=== PATIENT | male | born 1955 | race Caucasian/White ===

== ENCOUNTER → 2017-02-25 | Outpatient (CLI) | payer OTHER ==
[~2017-02-25] MED LIST: AMLO10TA2 PO; ASCO500T2 PO; ASPI-482 PO; ATOR40TA PO; CELE200C PO; CHOL200027 PO; FISH1CAP PO; HYDR-2868 PO; LISI40TA PO; METH250T PO; METO50TA2 PO
--- NOTE | 2017-02-25 12:08 | CARD ---
APPROVED REPORT EXAM: Two-dimensional and M-mode echocardiogram with Doppler and color Doppler. Other Information Quality : FairHR: 60bpm Rhythm : NSR INDICATION Dyspnea 2D DIMENSIONS RVDd3.5 (2.9-3.5cm)Left Atrium(2D)3.8 (1.6-4.0cm) IVSd0.9 (0.7-1.1cm)Aortic Root(2D)2.8 (2.0-3.7cm) LVDd4.6 (3.9-5.9cm)LVOT Diameter2.1 (1.8-2.4cm) PWd0.9 (0.7-1.1cm)LVDs3.1 (2.5-4.0cm) FS (%) 31.8 %SV58.4 ml LVEF(%)60.0 (>50%) Aortic Valve AoV Peak Edgar.127.1cm/sAoV VTI29.2cm AO Peak GR.6.5mmHgLVOT Peak Edgar.106.6cm/s LVOT VTI 25.30cmAO Mean GR.4mmHg AMANDA (VMAX)3.92cp1YTR (VTI)3.11cm2 Mitral Valve MV E Hftaorrn19.1cm/sMV DECEL TMUA263an MV A Rjkqzcwb75.4cm/sMV E Mean Gr.3mmHg MV OWE04udR/A Ratio0.9 MV A Sfbmjjgn829lmIDV (PHT)3.74cm2 TDI E/Lateral E'14.5E/Medial E'15.5 Pulmonary Valve PV Peak Eiwhicba84.2cm/sPV Peak Grad.3mmHg RVOT VTI17.9cm Tricuspid Valve TR P. Uhwdlmad212xv/sRAP JRPBSXVV5naBr TR Peak Gr.76yiVmVXQA42trDg LEFT VENTRICLE The left ventricle is normal size. There is normal left ventricular wall thickness. Left ventricle sy stolic function is normal. The Ejection Fraction is 60-65%. There is normal LV segmental wall motion. Transmitral Doppler flow pattern is Grade I-abnormal relaxation pattern. There is no ventricular sep leonila defect visualized. RIGHT VENTRICLE The right ventricle is normal size. The right ventricular systolic function is normal. ATRIA The left atrium size is normal. The right atrium size is normal. The interatrial septum is intact wit h no evidence for an atrial septal defect or patent foramen ovale as noted on 2-D or Doppler imaging. AORTIC VALVE The aortic valve is mildly sclerotic. The aortic valve is trileaflet. Doppler and Color Flow revealed no significant aortic regurgitation. There is no significant aortic valvular stenosis. MITRAL VALVE There is no evidence of mitral valve prolapse. There is no mitral valve stenosis. Doppler and Color F low revealed trace mitral regurgitation. TRICUSPID VALVE The tricuspid valve is normal in structure and function. Doppler and Color Flow revealed trace tricus pid regurgitation. There is no pulmonary hypertension. The PA pressure was estimated at 26 mmHg. Ther e is no tricuspid valve stenosis. PULMONIC VALVE Doppler and Color Flow revealed no pulmonic valvular regurgitation. There is no pulmonic valvular yandel nosis. GREAT VESSELS The aortic root is normal in size. The ascending aorta is normal in size. Pulmonary Vein is not well visualized. The IVC is normal in size and collapses >50% with inspiration. PERICARDIAL EFFUSION There is no pleural effusion. There is no evidence of significant pericardial effusion. Critical Notification Critical Value: No <Conclusion> Left ventricle systolic function is normal. The Ejection Fraction is 60-65%. There is normal LV segmental wall motion.
== END | disposition home or self-care (01) ==
LOC: ECHO 07:50
PROVIDERS: ATTEND Internal Medicine Cardiovascular Disease
DX: R06.02 Shortness of breath (principal); I08.1 Rheumatic disorders of both mitral and tricuspid valves
CPT/HCPCS: 93306

== ENCOUNTER → 2017-03-25 | Outpatient (CLI) | payer OTHER ==
--- NOTE | 2017-03-25 11:36 | RAD ---
Indication chronic shortness of breath. PA and lateral views of the chest were obtained and are compared to an examination 01/06/2017. The heart and pulmonary vessels are within normal limits. There is no focal infiltrate. There is no pleural fluid or pneumothorax. A significant change compared to the previous exam is not seen. IMPRESSION: No acute or focal process. No significant change
== END | disposition home or self-care (01) ==
LOC: RAD 10:50
PROVIDERS: ATTEND Internal Medicine Cardiovascular Disease
DX: R06.00 Dyspnea, unspecified (principal)
CPT/HCPCS: 71020

== ENCOUNTER → 2017-04-01 | Outpatient (CLI) | payer OTHER ==
--- NOTE | 2017-04-01 17:46 | RESP ---
DATE OF SERVICE: 04/01/2017 ATTENDING PHYSICIAN: Dr. Beckford. The patient's FVC was 3.57 which is 83% of predicted. FEV1 was 2.57 which is 79% of predicted. The FEV1/FVC ratio was normal. FEF 25-75 was 60% of predicted. No response to bronchodilators seen. Lung volumes could not be performed. Diffusion capacity was 128% of predicted. IMPRESSION: 1. Spirometry findings suggestive of small airway dysfunction. 2. No response to bronchodilators. 3. Increased diffusion capacity. BINTA CASANOVA MD DR: JANIYA/shine JOB#: [id number] / [id number] PIPPA Granado MD MTDD
== END | disposition home or self-care (01) ==
LOC: PF 07:58
PROVIDERS: ATTEND Internal Medicine Cardiovascular Disease
DX: R06.00 Dyspnea, unspecified (principal)
CPT/HCPCS: 94060; 94729

== ENCOUNTER → 2018-06-20 | Outpatient (CLI) | payer OTHER | END | disposition home or self-care (01) | LOC: KCIC MRI 07:43 | DX: M51.26 Other intervertebral disc displacement, lumbar region (principal); M48.061 Spinal stenosis, lumbar region without neurogenic claudication; M51.36 Other intervertebral disc degeneration, lumbar region; M12.88 Other specific arthropathies, not elsewhere classified, other specified site; R20.0 Anesthesia of skin; I10 Essential (primary) hypertension | CPT/HCPCS: 72148 ==

== ENCOUNTER → 2018-08-07 | Outpatient (CLI) | payer OTHER ==
[~2018-08-07] MED LIST changes: -AMLO10TA2 PO; +AMLO10TA6 PO; +BUPIVACAINE MPF 0.5% 30 ML VIAL. ONE; +LISI-130 PO; -LISI40TA PO; -METH250T PO; +METH250T3 PO; -METO50TA2 PO; +METO50TA6 PO; +methylPREDNISolone ACETATE 40 MG/ML VIAL. ONE
--- NOTE | 2018-08-07 13:04 | PAIN ---
DATE OF SERVICE: 08/07/2018 PROGRESS NOTE FOR PAIN CLINIC DIAGNOSES: 1. Lumbar radiculopathy with lumbar degenerative disk disease. 2. Left meralgia paraesthetica. HISTORY OF PRESENT ILLNESS: The patient is a 63-year-old male who returns for followup, last seen in 2015 in June. The patient underwent a lumbar epidural steroid injection and did very well for almost a year. Pain in his low back is returning now but his main complaint is left lateral thigh numbness and tingling. The patient seen his neurosurgeon who sent him on for treatment without any surgical indications at this time. The patient did have an MRI scan of his lumbar spine, which shows essentially similar to that in 2016 with a circumferential disk bulge at L5-S1 with severe bilateral neural foraminal stenosis and a disk protrusion centrally extending to the right foraminal zone. The patient reports it is worse with walking, standing, change in positions, mostly noticed with standing or sitting for a prolonged period with the lateral tingling on the anterior thigh and lateral thigh to the knee. The patient reports he feels weaker and he feels better when he is off of his feet or lying down, does not bother, does not awaken him from sleep at night. The patient rates the pain is from 0-10, 10 being the worst, as a 7 at its worst, 0 at its least and a 4 on average and is a 4 today. The patient reports disability rate from 0-10, 10 being the worst, is a 2 with family home responsibilities, 8 with recreation, social activity and occupation, 0 with sexual behavior, self care and life support activities. The patient has not tried any other current therapies but is interested in some physical therapy as he is looking into some weight loss strategies as well. MEDICATIONS: The patient's medication list includes Lipitor, hydralazine, amlodipine, vitamin D3, fish oil, daily baby aspirin, methyldopa, metoprolol and lisinopril. ALLERGIES: The patient has no known drug allergies. SOCIAL HISTORY: The patient drinks about 3 beers a month. Does not smoke, does not use any illegal, illicit or recreational drugs. He is and lives locally in [place], [place] and is currently retired. PHYSICAL EXAMINATION: VITAL SIGNS: Today, the patient's blood pressure is 134/71, pulse 77, respirations are 18 and temperature is 98.0 degrees Fahrenheit. GENERAL: The patient is awake, alert, oriented, appropriate and very pleasant demeanor. HEENT: Head shows normocephalic and atraumatic. Extraocular movements intact and symmetrical. Oral cavity: Mucous membranes are moist and pink. Dentition is intact. NECK: Shows anterior throat supple without palpable lymphadenopathy noted. Swallow reflex is symmetrical. CHEST: Shows normal on inspection. Breath sounds clear to auscultation bilaterally. HEART: Shows S1 and S2 clear. No murmurs auscultated. ABDOMEN: Soft, nontender and nondistended. Obese but without organomegaly. No rebound or guarding demonstrated. BACK: Shows spine grossly in the midline. Normal appearing thoracic kyphosis and slight flattening of lumbar lordotic curvature. Lumbar paraspinous muscle shows symmetrical on inspection and palpation shows some moderate tenderness bilaterally but only diffusely in the lower lumbar distribution. No tenderness over the sacroiliac region or sacrum. The patient has good rotational motion both laterally greater than 10 degrees, right and left as well as extension greater than 10 degrees, forward flexion 45 degrees, lumbar spine without difficulty or pain reported. EXTREMITIES: Lower extremities show deep tendon reflexes 2+ at the patella, 1+ tendo-calcaneus tendon. Motor exam is strong with 5/5 dorsiflexion and extension. Peripheral pulses are 1+. No peripheral edema is noted. The patient's left anterior thigh shows good discrimination between sharp and dull throughout the lateral and anterior thigh but the patient is not having any symptoms with sitting down and with standing, the patient is able to stand, stand on his toes without difficulty or loss of balance, walks with a normal appearing gait, not using any assistive devises to ambulate. The patient reports some mild numbness feeling in the left lateral and anterior thigh with standing even after a few minutes but is not significantly painful in just a few minutes. Options were discussed with the patient. The patient's old chart was reviewed as well as his current medication regimen updated. Current review of systems updated today as well and we will proceed with a left lateral femoral cutaneous nerve block. Risks were discussed including, but not limited to bleeding, infection, possibility of intravascular injection sequelae, extravasation of local anesthetic and numbness as well as side effects of steroid medication and poor results regarding pain control. The patient understands and wished to proceed. The patient will return to the clinic in approximately 2 weeks. We discussed potential lumbar epidural steroid injection if feeling much better with the left leg and his back pain is still significant. We will discuss this more on his return visit. DIAGNOSIS: Left meralgia paraesthetica. PROCEDURE: Left lateral femoral cutaneous nerve block under sterile prep and drape using local anesthetic. MEDICATION INJECTED: A total of 5 mL of 0.5% bupivacaine plus 40 mg Depo-Medrol after negative aspiration. CONDITION AT DISCHARGE: Stable. The patient tolerated the procedure well and had no complications. ZACH HERRERA MD DR: ALICE/shine JOB#: [id number] / [id number]
== END | disposition home or self-care (01) ==
LOC: PNCL 08:44
PROVIDERS: ATTEND Anesthesiology
DX: G57.12 Meralgia paresthetica, left lower limb (principal); M51.16 Intervertebral disc disorders with radiculopathy, lumbar region; Z79.82 Long term (current) use of aspirin; Z79.899 Other long term (current) drug therapy; Z72.89 Other problems related to lifestyle; Z91.030 Bee allergy status
CPT/HCPCS: 64450; J1030; J3490

== ENCOUNTER → 2018-08-21 | Outpatient (CLI) | payer OTHER ==
[~2018-08-21] MED LIST changes: +BUPIVACAINE MPF 0.25% 10 ML VIAL. ONE; -BUPIVACAINE MPF 0.5% 30 ML VIAL. ONE; +IOHEXOL 180 MG/ML 10 ML VIAL. ONE
--- NOTE | 2018-08-21 20:21 | PAIN ---
DATE OF SERVICE: 08/21/2018 DIAGNOSES: 1. Lumbar radiculopathy with lumbar degenerative disk disease. 2. Left meralgia paraesthetica. HISTORY OF PRESENT ILLNESS: The patient is a 63-year-old male who returns for followup status post left femoral cutaneous nerve block x 1 about 2 weeks ago. The patient reports he did better for about a week and the pain began to return. It is now on and off in the lateral anterior thigh, worse with walking, standing, but comes and goes, is not consistent with any one position at this time. The patient reports still pain across the low back, into the left leg as well. The patient rates his pain as 7 on a scale of 10 at its worst, 5 on average, 4 at its least and is a 4 today. The patient reports it is aching, dull, tight, tingling, burning, becoming more constant in the back and into the left leg. The patient reports no new motor or sensory deficits, no new bowel or bladder incontinence, but he has not been on his feet as much, which he feels that this may help the pain as well in the leg as noted in the back. The patient reports no new motor or sensory deficits, no new changes. PHYSICAL EXAMINATION: VITAL SIGNS: The patient's blood pressure 112/71, pulse 57, respirations 16, temperature is 98.5 degrees Fahrenheit, weight is 246 pounds. GENERAL: The patient is awake, alert, oriented, appropriate, very pleasant demeanor. HEENT: Head shows normocephalic, atraumatic. Extraocular movements intact and symmetrical. Oral cavity: Mucous membranes moist and pink. Dentition is intact. NECK: Shows anterior throat supple without palpable lymphadenopathy noted. Swallow reflex is symmetrical. CHEST: Shows normal with inspection. Breath sounds clear to auscultation bilaterally. HEART: Shows S1, S2 clear. No murmurs auscultated. ABDOMEN: Obese, soft, nontender, nondistended. No palpable organomegaly is noted. No rebound or guarding demonstrated. BACK: Shows spine grossly in the midline. Normal appearing thoracic kyphosis and lumbar lordotic curvature. Lumbar paraspinous musculature shows symmetrical on inspection and palpation shows some mild tenderness, but only diffusely in the low lumbar distribution without radiation. EXTREMITIES: Lower extremities show deep tendon reflexes 2+ in the patellar, 1+ tendo-calcaneus tendons. Motor exam is strong with 5/5 dorsiflexion, extension, quadriceps and hamstring flexion. Options were discussed with the patient. The patient's old chart was reviewed as his current medication regimen and updated. Current review of systems is updated today as well and we will proceed with a repeat left lateral femoral cutaneous nerve block with fluoroscopic guidance. Risks were again discussed including, but not limited to bleeding, infection, possibility of intravascular injection sequelae, spread of local anesthetic and numbness, side effects of steroid medication and poor results regarding pain control. The patient understands and wished to proceed. The patient will return to clinic in approximately 2 weeks for followup, was counseled on return appointment, activity level and side effects to be aware of. DIAGNOSIS: Left meralgia paraesthetica. PROCEDURE: Left lateral femoral cutaneous nerve block under sterile prep and drape using local anesthetic under fluoroscopic guidance. MEDICATIONS INJECTED: A total of 5 mL of 0.25% bupivacaine and 40 mg Depo-Medrol as well as 2 mL of Isovue for contrast. CONDITION AT DISCHARGE: Stable. The patient tolerated procedure well, had no complications. ZACH HERRERA MD DR: ALICE/shine JOB#: [id number] / [id number]
== END | disposition home or self-care (01) ==
LOC: PNCL 08:43
PROVIDERS: ATTEND Anesthesiology
DX: G57.10 Meralgia paresthetica, unspecified lower limb (principal); M51.16 Intervertebral disc disorders with radiculopathy, lumbar region; Z79.899 Other long term (current) drug therapy; Z79.82 Long term (current) use of aspirin; Z91.030 Bee allergy status; Z72.89 Other problems related to lifestyle
CPT/HCPCS: 64450; J1030; J3490; Q9965

== ENCOUNTER → 2018-09-07 | Outpatient (CLI) | payer OTHER ==
[~2018-09-07] MED LIST changes: -BUPIVACAINE MPF 0.25% 10 ML VIAL. ONE; +LIDOCAINE 1% PF 2 ML VIAL. ONE; +methylPREDNISolone ACETATE 80 MG/ML VIAL. ONE
--- NOTE | 2018-09-07 23:50 | PAIN ---
DATE OF SERVICE: 09/07/2018 PROGRESS NOTE FOR PAIN CLINIC DIAGNOSES: 1. Lumbar radiculopathy with lumbar degenerative disk disease. 2. Left meralgia paraesthetica. HISTORY OF PRESENT ILLNESS: The patient is a 63-year-old male who returns for followup status post left lateral femoral cutaneous nerve block. The patient reports only very minimal decrease the pain by 50% for the first few days and then the pain returned, still some pain across the low back, into the left lower extremity in the posterior gluteus, posterior thigh as well as the left anterior thigh with some numbness with longstanding especially. The patient reports it is becoming worse more severe with time. Describes the pain as a 7 on a scale of 10 at its worst, 6 on average, 5 at its least and is a 6 today. The patient reports tingling, burning, aching, dull, radiating, becoming more constant, more sharp and more shooting into the left lower extremity as well as low back pain itself. The patient reports no new motor or sensory deficits and no new bowel or bladder incontinence, sleeps well at night, better with sitting or lying down and does not awaken him from sleep most nights. PHYSICAL EXAMINATION: VITAL SIGNS: The patient's blood pressure is 131/73, pulse 59, respirations are 20 and temperature is 98.4 degrees Fahrenheit. Height is 5 feet 6 inches and weight is 249 pounds. GENERAL: The patient is awake, alert, oriented, appropriate and very pleasant demeanor. HEENT: Head is normocephalic and atraumatic. Extraocular movements are intact and symmetrical. Oral cavity: Mucous membranes moist and pink. Dentition is intact. NECK: Shows anterior throat supple without palpable lymphadenopathy noted. Swallow reflex symmetrical. CHEST: Shows normal on inspection. Breath sounds clear to auscultation bilaterally. HEART: Shows S1 and S2 clear. No murmurs auscultated. ABDOMEN: Soft, nontender and nondistended. No palpable organomegaly is noted. No rebound or guarding demonstrated. BACK: Shows spine grossly in the midline. Normal-appearing thoracic kyphosis and lumbar lordotic curvature. Lumbar paraspinous musculature shows symmetrical on inspection, with palpation shows some very mild tenderness diffusely in the low lumbar distribution bilaterally but only diffusely without radiation, without trigger points. The patient has good rotational motion of the lumbar spine, both laterally as well as extension and flexion without difficulty. No tenderness over the sacrum or sacroiliac regions. EXTREMITIES: Lower extremities show deep tendon reflexes at 2+ in the patellar, 1+ tendo-calcaneus tendons. Motor exam is strong with 5/5 dorsiflexion, extension, quadriceps and hamstring flexion. Peripheral pulses are 1+ posterior tibia. No peripheral edema is noted bilaterally. Options were discussed with the patient. The patient's old chart was reviewed as well as his current medication regimen updated. Current review of systems updated today as well and we will proceed with a lumbar epidural steroid injection today with fluoroscopic guidance. Risks were again discussed including, but not limited to bleeding, infection, possibility of epidural hematoma and subsequent neurological compromise, dural puncture, headaches, spinal cord and/or nerve damage, side effects of steroid medication and poor results regarding pain control. The patient understands and wished to proceed. The patient will return to the clinic in approximately 2 weeks for followup, was counseled as to return appointment, activity level and side effects to be aware of. DIAGNOSIS: Lumbar radiculopathy with lumbar degenerative disk disease. PROCEDURE: Lumbar epidural steroid injection, translaminar approach, L5-S1 level using C-arm fluoroscopic guidance under sterile prep and drape using local anesthetic. MEDICATION INJECTED: A total of 120 mg Depo-Medrol plus 10 mL of preservative-free normal saline and 2 mL of Isovue for contrast. CONDITION AT DISCHARGE: Stable. The patient tolerated the procedure well and had no complications. ZACH HERRERA MD DR: ALICE/shine JOB#: [id number] / [id number]
== END | disposition home or self-care (01) ==
LOC: PNCL 08:43
PROVIDERS: ATTEND Anesthesiology
DX: M51.16 Intervertebral disc disorders with radiculopathy, lumbar region (principal); G57.12 Meralgia paresthetica, left lower limb; Z91.030 Bee allergy status
CPT/HCPCS: 62323; J1030; J1040; Q9965

== ENCOUNTER → 2018-09-22 | Outpatient (CLI) | payer OTHER ==
--- NOTE | 2018-09-23 05:59 | PAIN ---
DATE OF SERVICE: 09/22/2018 PROGRESS NOTE FOR PAIN CLINIC DIAGNOSES: Lumbar radiculopathy with lumbosacral degenerative disk disease. HISTORY OF PRESENT ILLNESS: The patient is a 63-year-old male who returns for followup status post lumbar epidural steroid injection x 1. The patient reports about 50% improvement. The pain in his leg has almost essentially gone. The tingling has completely gone in the leg, has had some dull aching in the low back and left anterior lateral thigh. The patient reports his posterior thighs as well as the gluteus has also some dull ache, but the tingling is much better. The patient is quite impressed that he is doing better now. The patient reports it is a 5 on a scale of 10 at its worst, 5 on average and a 3 at its least and is a 5 today. The patient reports it is aching, dull, tingling, burning, sometimes constant, worse with standing for long periods. When he sits down, the pain is essentially gone as well as lying down. It does not awaken him from sleep at night. The patient reports he has been increasing activity with distance walking, able to do household activities and recreational activities, traveling with much greater ease. No new motor or sensory deficits, no new bowel or bladder incontinence or other complaints. PHYSICAL EXAMINATION: VITAL SIGNS: The patient's blood pressure is 114/75, pulse 66, respirations 16, temperature 98.0 degrees Fahrenheit. Height is 5 feet 6 inches, weight is 248 pounds. GENERAL: The patient is awake, alert, oriented, appropriate, very pleasant demeanor. HEENT: Shows normocephalic, atraumatic. Extraocular movements are intact and symmetrical. Oral cavity, mucous membranes are moist and pink. Dentition intact. NECK: Shows anterior throat supple without palpable lymphadenopathy noted. Swallow reflex symmetrical. CHEST: Shows normal with inspection. Breath sounds clear to auscultation bilaterally. HEART: Shows S1, S2 clear. No murmurs auscultated. ABDOMEN: Soft, nontender, nondistended. No palpable organomegaly is noted. No rebound or guarding demonstrated. BACK: Shows spine grossly in the midline. Normal appearing thoracic kyphosis and lumbar lordotic curvature. Lumbar paraspinous muscle shows symmetrical on inspection, on palpation shows some mild tenderness only diffusely in the low lumbar distribution without radiation. The patient has good rotational motion of lumbar spine both laterally as well as extension and flexion without difficulty. EXTREMITIES: Lower extremities show deep tendon reflexes at 1+ in the patellar and tendo calcaneus tendons. Motor exam is strong with 5/5 dorsiflexion, extension, quadriceps and hamstring flexion and symmetrical. Peripheral pulses are 1+ posterior tibia. No peripheral edema is noted bilaterally. Options were discussed with the patient. The patient's old chart was reviewed as his current medication regimen updated. Current review of systems is updated today as well. We will proceed with second in the series of lumbar epidural steroid injection today with fluoroscopic guidance. Risks were again discussed including, but not limited to, bleeding, infection, possibility of epidural hematoma, subsequent neurological compromise, dural puncture, headaches, spinal cord and/or nerve damage, side effects of steroid medication and poor results regarding pain control. The patient understands and wished to proceed. The patient to return to clinic in approximately 2 weeks for followup, was counseled on his return appointment, activity level and side effects to be aware of. DIAGNOSIS: Lumbar radiculopathy with lumbosacral degenerative disk disease. PROCEDURE: Lumbar epidural steroid injection, translaminar approach at L5-S1 level using C-arm fluoroscopic guidance under sterile prep and drape using local anesthetic. MEDICATION INJECTED: A total of 120 mg Depo-Medrol plus 10 mL of preservative-free normal saline and 2 mL of Isovue for contrast. CONDITION AT DISCHARGE: Stable. The patient tolerated procedure well, had no complications. ZACH HERRERA MD DR: ALICE/shine JOB#: [id number] / [id number]
== END | disposition home or self-care (01) ==
LOC: PNCL 08:19
PROVIDERS: ATTEND Anesthesiology
DX: M51.17 Intervertebral disc disorders with radiculopathy, lumbosacral region (principal); Z91.030 Bee allergy status
CPT/HCPCS: 62323; J1030; J1040; Q9965

== ENCOUNTER → 2019-01-17 | Outpatient (CLI) | payer OTHER ==
[~2019-01-17] MED LIST changes: -AMLO10TA6 PO; +AMLO10TA8 PO; -IOHEXOL 180 MG/ML 10 ML VIAL. ONE; -LIDOCAINE 1% PF 2 ML VIAL. ONE; -methylPREDNISolone ACETATE 40 MG/ML VIAL. ONE; -methylPREDNISolone ACETATE 80 MG/ML VIAL. ONE
--- NOTE | 2019-01-17 14:25 | KCIC ---
EXAM: CT lumbar spine without IV contrast CLINICAL HISTORY:Low back pain, degenerative disc disease, lumbar radiculopathy. COMPARISON: MRI lumbar spine 06/20/2018 TECHNIQUE: Helical CT was performed through the lumbar spine. Axial, coronal and sagittal reformatted images were generated. PQRS compliance statement - One or more of the following individualized dose reduction techniques were utilized for this study: 1. Automated exposure control 2. Adjustment of the mA and/or kV according to patient size 3. Use of iterative reconstruction technique FINDINGS: Straightening of the normal lumbar lordosis. No significant spondylolisthesis. Severe L5-S1 intervertebral disc height loss. Vertebral body heights are preserved. No evidence for acute fracture. L1-L2: No significant central canal stenosis or neural foraminal narrowing. L2-L3: Mild diffuse circumferential disc bulge results in minimal ventral central canal narrowing without neural foraminal narrowing. L3-L4: Diffuse circumferential disc bulge results in mild central canal stenosis without significant neural foraminal narrowing. L4-L5: Diffuse circumferential disc bulge with superimposed subtle central disc protrusion, ligamentum flavum hypertrophy and facet degenerative changes as well as epidural lipomatosis results in moderate central canal stenosis with thecal sac measuring about 8 mm in AP dimension with mild bilateral neural foraminal narrowing. L5-S1: Diffuse posterior disc osteophyte complex with ligamentum flavum hypertrophy and facet degenerative changes results in moderate central canal stenosis with severe bilateral neural foraminal narrowing. Associated right greater than left lateral recess/subarticular narrowing is also seen. Aortic calcifications are seen. IMPRESSION: 1. No evidence for acute fracture or subluxation. 2. Multilevel degenerative changes, most prominent at L4-5 and L5-S1 as described in detail above. Electronically signed by: Cain Mcdaniel MD (01/17/2019 2:22 PM) [id number]
== END | disposition home or self-care (01) ==
LOC: KCIC CT 13:16
PROVIDERS: ATTEND Neurological Surgery
DX: M47.26 Other spondylosis with radiculopathy, lumbar region (principal); M47.818 Spondylosis without myelopathy or radiculopathy, sacral and sacrococcygeal region; M51.16 Intervertebral disc disorders with radiculopathy, lumbar region; M48.07 Spinal stenosis, lumbosacral region; M25.78 Osteophyte, vertebrae
CPT/HCPCS: 72131

== ENCOUNTER → 2019-02-02 | Outpatient (CLI) | payer OTHER ==
--- NOTE | 2019-02-02 14:10 | PAIN ---
DATE OF SERVICE: 02/02/2019 PROGRESS NOTE FOR PAIN CLINIC DIAGNOSES: Lumbar degenerative disk disease, lumbar and lumbosacral spondylosis. HISTORY OF PRESENT ILLNESS: The patient is a 63-year-old male who returns for followup status post epidural steroid injections 09/22/2018, last time he was seen. The patient did well with this, about 50% improvement, reports the pain has changed now. He has recently seen his neurosurgeon, had a new CT scan of lumbar spine with contrast showed some multilevel degenerative changes, most prominent L4-L5 and L5-S1 with disk bulges and increased moderate central canal stenosis L4-L5 and bilateral severe neural foraminal narrowing at L5-S1. The patient reports pain is primarily just in his back now without any radiation to the lower extremities. The patient reports it is staying in the low back, primarily left greater than right, but present bilaterally, worse with extension of the lumbar spine, better with forward flexion. The patient reports it is a 7 on a scale of 10 at its worst, 6 on average, 4 at its least and is a 4 today, which was aching, sharp and dull with some numbness and tingling and a burning sensation as well across the low back and slightly worse on the left, again with axial loading and extension of the lumbar spine, better again with forward flexion and decompression of the lumbar spine. The patient reports no new motor or sensory deficits, no new bowel or bladder incontinence. Reports initially was doing better with walking, doing work activities, household activity. He has been going to the [facility]. He is enrolled in a pool therapy program there, currently with physical therapy and has been doing this with he and his trying to lose some weight and is doing some stretching and strengthening exercises as well through the [facility], which has not been decreasing the pain significantly. The patient reports does feel better when he is in the water, once he is out the pain returns. The patient reports it does awaken him from sleep, but only about every 8 hours and usually most nights he sleeps without difficulty. PHYSICAL EXAMINATION: VITAL SIGNS: The patient's blood pressure 131/81, pulse 64, respirations 18, temperature 98.4 degrees Fahrenheit, weight is 246 pounds. GENERAL: The patient is awake, alert, oriented, appropriate, very pleasant demeanor. HEENT: Head shows normocephalic, atraumatic. Extraocular movements are intact and symmetrical. The patient wears eye glasses. Oral cavity: Mucous membranes moist and pink. Dentition intact. NECK: Shows anterior throat supple without palpable lymphadenopathy noted. Swallow reflex symmetrical. CHEST: Shows normal with inspection. Breath sounds are clear to auscultation bilaterally. HEART: Shows S1, S2 clear. No murmurs auscultated. ABDOMEN: Soft, nontender, nondistended. No palpable organomegaly is noted. No rebound or guarding demonstrated. BACK: Shows spine grossly in the midline, normal appearing thoracic kyphosis and some minor flattening of lumbar lordotic curvature. Lumbar paraspinous muscle shows symmetrical on inspection, with palpation shows some moderate tenderness diffusely throughout the middle and lower distribution of paraspinous muscles. The patient has good rotation both moderate tenderness and pain with left lateral rotation greater than 10 degrees as well as right lateral rotation greater than 10 degrees with some moderate tenderness as well with extension at 10 degrees. The patient has significant tenderness bilaterally, again worse on the left than the right, but very tender and exacerbated by extension and axial loading of the lumbar spine. Forward flexion at 45 degrees decreases his pain and is not uncomfortable. EXTREMITIES: The patient's lower extremities show deep tendon reflexes 2+ in the patellar, 1+ tendo-calcaneus tendons. Motor exam is strong with 5/5 dorsiflexion, extension, quadriceps and hamstring flexion equal. Peripheral pulses are 1+ posterior tibial. No peripheral edema is noted bilaterally. Options were discussed with the patient. The patient's old chart was reviewed and his current medication regimen updated. Current review of systems updated today as well. We will preauthorize the patient for bilateral L4-L5 and L5-S1 facet joint injections. The patient has a significant spondylytic and axial loading pain in the low back, again left greater than right, without radiation to lower extremities consistent with facet syndrome and recent neurosurgical evaluation without any surgical indication. The patient will continue stretching and strengthening exercise as well as pool therapy, which he is undergoing currently at the [facility] and we will try Medrol Dosepak in the meantime as well. The patient was given instruction as well as side effects to be aware with medication. We will follow up once preauthorization is obtained. We will plan on bilateral L4-L5 and L5-S1 facet joint injections at that time. ZACH HERRERA MD DR: ALICE/shine JOB#: [id number] / [id number]
== END | disposition home or self-care (01) ==
LOC: PNCL 07:52
PROVIDERS: ATTEND Anesthesiology
DX: M51.36 Other intervertebral disc degeneration, lumbar region (principal); M47.897 Other spondylosis, lumbosacral region
CPT/HCPCS: G0463

== ENCOUNTER → 2019-02-16 | Outpatient (CLI) | payer OTHER ==
[~2019-02-16] MED LIST changes: +BUPIVACAINE MPF 0.25% 10 ML VIAL. ONE; +IOHEXOL 180 MG/ML 10 ML VIAL. ONE; +methylPREDNISolone ACETATE 40 MG/ML VIAL. ONE; +methylPREDNISolone ACETATE 80 MG/ML VIAL. ONE
--- NOTE | 2019-02-16 23:36 | PAIN ---
DATE OF SERVICE: 02/16/2019 DIAGNOSES: Lumbar degenerative disk disease, lumbar and lumbosacral spondylosis. HISTORY OF PRESENT ILLNESS: The patient is a 63-year-old male who returns for followup status post evaluation and preauthorization for bilateral L4-L5 and L5-S1 facet joint injections. The patient returns with the authorization and would like to proceed. Reports pain still across the low back bilaterally, somewhat worse on the left than the right, but present bilaterally with occasional pain in the left leg, but only rarely. The patient reports the pain is aching, burning, stabbing, becoming more constant, more radiating, rates it as a 7 on a scale of 10 at its worst, 6 on average, 5 at its least and is a 6 today. The patient reports no new motor or sensory deficits. No new bowel or bladder incontinence or other complaints. Report it is much worse with sitting, standing, walking, better with sitting or lying down, does not awaken him from sleep at night. PHYSICAL EXAMINATION: VITAL SIGNS: The patient's blood pressure 117/65, pulse 55, respirations are 18, temperature is 98.2 degrees Fahrenheit, height is 5 feet 6 inches, weight is 241 pounds. GENERAL: The patient is awake, alert, oriented, appropriate, very pleasant demeanor. HEENT: Shows normocephalic, atraumatic. Extraocular movements are intact and symmetrical. Oral cavity: Mucous membranes moist and pink. Dentition is intact. NECK: Shows anterior throat supple without palpable lymphadenopathy noted. Swallow reflex is symmetrical. CHEST: Shows normal on inspection. Breath sounds are clear to auscultation bilaterally. HEART: Shows S1, S2 clear. No murmurs auscultated. ABDOMEN: Soft, nontender, nondistended. No palpable organomegaly is noted. No rebound or guarding demonstrated. BACK: Shows spine grossly in the midline. Normal appearing thoracic kyphosis, minor flattening of lumbar lordotic curvature. Lumbar paraspinous muscle shows symmetrical on inspection. On palpation shows some moderate tenderness diffusely bilaterally with palpation. With rotation shows extensive pain and increased pain with extension of the spine and axial loading of the low back as well as right and left lateral rotation, somewhat worse to the left greater than 10 degrees, but also painful to the right. Forward flexion at 45 degrees is nonpainful. EXTREMITIES: The patient's lower extremities show deep tendon reflexes 2+ in the patellar, 1+ tendo calcaneus tendons. Motor exam is strong with 5/5 dorsiflexion, extension, quadriceps and hamstring flexion and symmetrical. Peripheral pulses are 1+ posterior tibia. No peripheral edema is noted. Options were discussed with the patient. The patient's old chart was reviewed as was his current medication regimen updated. Current review of systems is updated today as well. We will proceed with bilateral L4-L5 and L5-S1 facet joint injection today with fluoroscopic guidance. Risks were discussed again including, but not limited to bleeding, infection, possibility of epidural hematoma, subsequent neurological compromise, dural puncture, headaches, spinal cord and/or nerve damage, side effects of steroid medication and poor results regarding pain control. The patient understands and wished to proceed. The patient will return to the clinic in approximately 2 weeks for followup, was counseled on return appointment, activity level and side effects to be aware of. The patient will continue with water therapy and [employer] exercise program that he is doing currently. DIAGNOSES: Lumbar and lumbosacral spondylosis and lumbar degenerative disk disease. PROCEDURES: Bilateral L4-L5 and L5-S1 facet joint injection using C-arm fluoroscopic guidance under sterile prep and drape using local anesthetic. MEDICATION INJECTED: A total of 4 mL of 0.25% bupivacaine plus 120 mg total of Depo-Medrol and 2 mL total of contrast. CONDITION AT DISCHARGE: Stable. The patient tolerated the procedure well, had no complications. ZACH HERRERA MD DR: ALICE/shine JOB#: [id number] / [id number]
== END | disposition home or self-care (01) ==
LOC: PNCL 08:18
PROVIDERS: ATTEND Anesthesiology
DX: M47.817 Spondylosis without myelopathy or radiculopathy, lumbosacral region (principal); M51.36 Other intervertebral disc degeneration, lumbar region; Z91.030 Bee allergy status
CPT/HCPCS: 64493; 64494; J1030; J1040; J3490; Q9965

== ENCOUNTER → 2019-03-23 | Outpatient (CLI) | payer OTHER ==
[~2019-03-23] MED LIST changes: -BUPIVACAINE MPF 0.25% 10 ML VIAL. ONE; -IOHEXOL 180 MG/ML 10 ML VIAL. ONE; -methylPREDNISolone ACETATE 40 MG/ML VIAL. ONE; -methylPREDNISolone ACETATE 80 MG/ML VIAL. ONE
--- NOTE | 2019-03-23 22:26 | PAIN ---
DATE OF SERVICE: 03/23/2019 PROGRESS NOTE FOR PAIN CLINIC: DIAGNOSES: Lumbar radiculopathy with lumbar degenerative disk disease, lumbar spondylosis. HISTORY OF PRESENT ILLNESS: The patient is a 63-year-old male who returns for followup status post both lumbar epidural steroid injections and bilateral lumbar facet injections. The patient reports no significant improvement noted with the facet injection, not even for the first day or two. Still significant pain across the low back with occasional radiation into the left lower extremity. The patient reports mainly across the low back; however, worse with walking, standing, changing positions, reports that the injections really did no benefit, reports pain is 7 on a scale of 10 at its worst over the past week, 7 at worst, he had 5 on average, 5 at the least and is a 5 today. The patient reports it is aching, sharp, tight, tingling, burning across the low back, right essentially equal to left. The patient reports no new motor or sensory deficits; however, no new bowel or bladder incontinence. PHYSICAL EXAMINATION: VITAL SIGNS: The patient's blood pressure 116/74, pulse 60, respirations 16, temperature 98.1 degrees Fahrenheit, height is 5 feet 6 inches and weight is 236 pounds. GENERAL: The patient is awake, alert, oriented, appropriate, very pleasant demeanor. HEENT: Head shows normocephalic, atraumatic. Extraocular movements are intact and symmetrical. Oral cavity, mucous membranes are moist and pink. Dentition is intact. NECK: Shows anterior throat supple without palpable lymphadenopathy noted. Swallow reflex symmetrical. CHEST: Shows normal with inspection. Breath sounds clear to auscultation bilaterally. HEART: Shows S1, S2 clear. No murmurs auscultated. ABDOMEN: Soft, nontender, nondistended, obese. No palpable organomegaly is noted. No rebound or guarding demonstrated. BACK: Shows spine grossly in the midline. Normal appearing thoracic kyphosis. Some minor flattening of lumbar lordotic curvature. Lumbar paraspinous muscle shows symmetrical on inspection, on palpation shows some moderate tenderness bilaterally diffusely in the middle and lower lumbar distribution, but only diffusely without radiation. The patient has good rotational motion of lumbar spine, some moderate tenderness with extension, but not with forward flexion. Right and left lateral rotation shows mild tenderness as well bilaterally. EXTREMITIES: Lower extremities show deep tendon reflexes 2+ in the patellar and 1+ tendo calcaneus tendons. Motor exam is strong with 5/5 dorsiflexion, extension, quadriceps and hamstring flexion symmetrical. Peripheral pulses are 1+ posterior tibial. No peripheral edema is noted bilaterally. Options were discussed with the patient. The patient's old chart was reviewed as his current medication regimen updated. Current review of systems updated today as well. We will hold on any further injections at this time, recommend at this point water therapy. The patient has done well with this in the past and also continued weight loss and exercise. The patient's MRI scans were reviewed. He also would like to speak with his neurosurgeon again if there are any other options and he will do this on his own accord, recommending physical therapy at this point with water therapy primarily and weight loss. The patient understands and agrees, will follow up at this point on an as needed basis. ZACH HERRERA MD DR: ALICE/shine JOB#: [id number] / [id number]
== END | disposition home or self-care (01) ==
LOC: PNCL 07:55
PROVIDERS: ATTEND Anesthesiology
DX: M51.16 Intervertebral disc disorders with radiculopathy, lumbar region (principal); M47.26 Other spondylosis with radiculopathy, lumbar region
CPT/HCPCS: G0463

== ENCOUNTER → 2019-05-29 | Outpatient (CLI) | payer OTHER ==
--- NOTE | 2019-05-29 12:51 | RAD ---
Examination: Ultrasound renal duplex HISTORY: History of hypertension COMPARISON: None available Technique: Grayscale, color Doppler 2-D, spectral waveforms analysis of the bilateral renal arteries are performed Findings: The right kidney measures 10.3 cm in length and left kidney measures 10.5 cm in length. The velocity in the aorta is 82 cm/s. The right renal artery velocity ranges between 60 and 68 cm/s. Left renal artery velocity ranges between 50 and 89 cm/s. Right renal artery to aorta velocity ratio is 0.83 and on the left is 1.09. IMPRESSION: No evidence of hemodynamically significant stenosis. Electronically signed by: Chris Leonardo MD (05/29/2019 12:48 PM) [facility]
== END | disposition home or self-care (01) ==
LOC: US 06:06
PROVIDERS: ATTEND Family Medicine
DX: I10 Essential (primary) hypertension (principal)
CPT/HCPCS: 93975

== ENCOUNTER 2019-08-18 21:00 | Inpatient (IN) | payer OTHER ==
[~2019-08-18] VITALS: Ht 167.6 cm; Wt 112.5 kg
[2019-08-18 21:25] LABS: BILIRUBIN,URINE NEGATIVE (NEG); CLARITY,URINE CLEAR; COLOR,URINE YELLOW; NITRITE,URINE NEGATIVE (NEG); PROTEIN,URINE NEGATIVE (NEG-TRACE); UROBILINOGEN,URINE 0.2 mg/dL (0.2 mg/dL)
[2019-08-18 21:32] LABS: BACTERIA,URINE 0 /HPF (0-FEW); RBC,URINE OCC /HPF (0-2); SQUAMOUS EPITHELIAL CELL,UR FEW /LPF; WBC,URINE OCC /HPF (0-4)
[2019-08-18] MEDS ORDERED: ONDANSETRON PF 4 MG/2 ML VIAL. IV ONE (22:15)
[2019-08-18] MEDS ORDERED: IV NORMAL SALINE 1000ML BAG 1,000 ML IV ONE (22:15)
[2019-08-18] MEDS ORDERED: MORPHINE SULFATE 4 MG/ML VIAL. IV ONE (22:15)
[2019-08-18 22:20] LABS: BASO # 0.1 x10^3/uL (0.0-0.2); BASO % 1 % (0-3); EOS # 0.1 x10^3/uL (0.0-0.7); EOS % 1 % (0-3); HEMATOCRIT 46.2 % (39.0-53.0); HEMOGLOBIN 15.9 g/dL (13.0-17.5); LYMPH # 0.9 x10^3/uL (1.0-4.8); LYMPH % 8 % (24-48); MEAN CORPUSCULAR HEMOGLOBIN 31 pg (25-35); MEAN CORPUSCULAR HGB CONC 34 g/dL (31-37); MEAN CORPUSCULAR VOLUME 89 fL (79-100); MONO # 0.8 x10^3/uL (0.0-1.1); MONO % 7 % (0-9); NEUT # 9.5 x10^3/uL (1.8-7.7); NEUT % 83 % (31-73); PLATELET COUNT 188 x10^3/uL (140-400); RED CELL DISTRIBUTION WIDTH 12.6 % (11.5-14.5); WHITE BLOOD COUNT 11.4 x10^3/uL (4.0-11.0)
[2019-08-18 22:30] LABS: CALCIUM 9.1 mg/dL (8.5-10.1); CREATININE 0.8 mg/dL (0.7-1.3); POTASSIUM 4.3 mmol/L (3.5-5.1)
[2019-08-18 22:40] LABS: ALBUMIN 3.9 g/dL (3.4-5.0); ALBUMIN/GLOBULIN RATIO 1.1 (1.0-1.7); TOTAL BILIRUBIN 0.9 mg/dL (0.2-1.0); TOTAL PROTEIN 7.3 g/dL (6.4-8.2)
[2019-08-18] MEDS ORDERED: CONTRAST GIVEN. MC PRN (22:45)
[2019-08-18] MEDS ORDERED: IOHEXOL 300 MG/ML 100ML VIAL. IV ONE (22:45)
--- NOTE | 2019-08-18 23:36 | RAD ---
Study: CT abdomen/pelvis with intravenous contrast Indication: Periumbilical pain. Nausea. Concern for small bowel obstruction. Comparison: None available. Technique: Helical CT imaging performed of the abdomen and pelvis after the intravenous administration of 75 cc Omnipaque 300 contrast. Sagittal and coronal reformats were obtained. One or more of the following individualized dose reduction techniques were utilized for this examination: 1. Automated exposure control 2. Adjustment of the mA and/or kV according to patient size 3. Use of iterative reconstruction technique. Findings: Left adrenal gland nodule, image 29 series 2, measuring 1.9 x 1.5 cm with an internal density of 50 Hounsfield units. Mildly nodular right adrenal gland such as on image 28 series 2 with nodularity at both limbs measuring approximately 7 mm. Unremarkable liver, pancreas and spleen. The kidneys are unremarkable. The colon, appendix, small bowel and stomach are unremarkable. Mild circumferential thickening of the distal esophageal wall. The prostate is within normal limits for size. Unremarkable urinary bladder. Calcific atherosclerosis of a nonaneurysmal abdominal aorta. No acute body wall soft tissue abnormality. Symmetric muscular bulk. Several prominent retroperitoneal lymph nodes are identified, the largest interposed between the inferior vena cava and aorta on image 47 series 2 measuring 1.9 cm in transverse dimension. Several mesenteric masses favored to represent lymph nodes such as to the left of the superior mesenteric artery, image 38 series 2, measures 2.9 cm transverse by 4.5 cm AP by 3.9 cm craniocaudal. Surrounding fat stranding. Additional smaller and less centrally low attenuating mesenteric lymph nodes such as on image 44 series 2 measuring just under 2 cm in short axis dimension. Scattered osseous degenerative changes, most notable at the L5-S1 level. No acute or destructive osseous abnormality. Impression: 1. Several central mesenteric masses favored to represent pathologically enlarged lymph nodes with the largest seen just the left of the superior mesenteric artery and measuring approximately 2.9 x 4.5 x 3.9 cm. This presumed lymph node is centrally low attenuating and exhibits surrounding fatty stranding. Given reported pain and inflammatory changes, a process such as mesenteritis is a consideration though an underlying malignancy is not excluded. Note is also made that there are a few pathologically enlarged retroperitoneal lymph nodes which could be reactive or malignant. The location of these findings renders them difficult to biopsy. At a minimum, short-term follow-up is needed. 2. Indeterminate left adrenal gland nodule measuring 1.9 x 1.5 cm with a central density of approximately 50 Hounsfield units. A few indeterminate subcentimeter nodules are present within the right adrenal gland. These could be further evaluated with nonemergent dedicated CT adrenal gland mass protocol or could be evaluated for stability when follow-up is performed for lymphadenopathy. Electronically signed by: PAUL EAST MD (08/18/2019 11:33 PM) [facility]
[2019-08-19] VITALS (7 sets, daily range): BP systolic 99–167; BP diastolic 48–93
[2019-08-19] MEDS ORDERED: MORPHINE SULFATE 4 MG/ML VIAL. IV ONE (00:15)
--- NOTE | 2019-08-19 00:25 | PHYS DOC ---
Past Medical History Past Medical History: Hypertension Past Surgical History: Other Additional Past Surgical Histo: HEMRRHOIDECTOMY Alcohol Use: Rarely Drug Use: None Adult General Chief Complaint Chief Complaint: ABDOMINAL PAIN HPI HPI Patient is a 64 year olS male with a history of hypertension is presenting with diffuse abdominal pain onset at 1 AM yesterday no nausea or vomiting or diarrhea he did have a egg McMuffin for breakfast that really did not change the symptoms overall the pain has just been sort of cramping and dull in the periumbilical area constant throughout the day had a bowel movement that was basically normal around noon has never really had pain like this before drinks occasionally denies previous surgical history The pain is nonexertional there is no chest pain there is no shortness of breath otherwise negative except as noted in the history of present illness Review of Systems Review of Systems Constitutional: Denies fever or chills [] Eyes: Denies change in visual acuity, redness, or eye pain [] HENT: Denies nasal congestion or sore throat [] Respiratory: Denies cough or shortness of breath [] Cardiovascular: Musculoskeletal: Denies back pain or joint pain [] Integument: Denies rash or skin lesions [] Neurologic: Denies headache, focal weakness or sensory changes [] Endocrine: Denies polyuria or polydipsia [] All other systems were reviewed and found to be within normal limits, except as documented in this note. Current Medications Current Medications Current Medications Medications (Trade) Dose Ordered Sig/Odalis Start Time Stop Time Status Last Admin Dose Admin Ciprofloxacin/ Dextrose 200 ml @ 200 mls/hr 1X ONCE 08/19/19 00:30 08/19/19 01:29 UNV Info (CONTRAST GIVEN -- Rx MONITORING) 1 each PRN DAILY PRN 08/18/19 22:45 08/20/19 22:44 Iohexol (Omnipaque 300 Mg/ml) 75 ml 1X ONCE 08/18/19 22:45 08/18/19 22:46 DC 08/18/19 22:56 75 ML Metronidazole 100 ml @ 100 mls/hr 1X ONCE 08/19/19 00:30 08/19/19 01:29 UNV Morphine Sulfate (Morphine Sulfate) 4 mg PRN Q2HR PRN 08/19/19 00:30 08/20/19 00:29 UNV Ondansetron HCl (Zofran) 4 mg PRN Q8HRS PRN 08/19/19 00:30 08/20/19 00:29 UNV Sodium Chloride 1,000 ml @ 100 mls/hr Q10H 08/19/19 00:16 08/20/19 00:15 UNV Allergies Allergies Allergies Coded Allergies Type Severity Reaction Last Updated Verified venom-honey bee Allergy Severe swelling 06/24/16 Yes Physical Exam Physical Exam Constitutional: Well developed, well nourished, no acute distress, non-toxic appearance. [] HENT: Normocephalic, atraumatic, bilateral external ears normal, oropharynx moist, no oral exudates, nose normal. [] Eyes: PERRLA, EOMI, conjunctiva normal, no discharge. [] Neck: Normal range of motion, no tenderness, supple, no stridor. [] Cardiovascular:Heart rate regular rhythm, no murmur [] Lungs & Thorax: Bilateral breath sounds clear to auscultation [] Abdomen: Bowel sounds normal, soft, no tenderness, no masses, no pulsatile masses. [] Really no significant tenderness even with deep palpation Skin: Warm, dry, no erythema, no rash. [] Back: No tenderness, no CVA tenderness. [] Extremities: No tenderness, no cyanosis, no clubbing, ROM intact, no edema. [] Neurologic: Alert and oriented X 3, normal motor function, normal sensory function, no focal deficits noted. [] Psychologic: Affect normal, judgement normal, mood normal. [] Current Patient Data Vital Signs Vital Signs Date Time Temp Pulse Resp B/P (MAP) Pulse Ox O2 Delivery O2 Flow Rate FiO2 08/18/19 22:27 Room Air 08/18/19 22:06 98.1 56 17 175/98 (123) 97 98.1 Lab Values Laboratory Tests Test 08/18/19 21:10 08/18/19 22:10 Urine Collection Type Unknown Urine Color Yellow Urine Clarity Clear Urine pH 6.0 Urine Specific [place] 1.020 Urine Protein Negative mg/dL (NEG-TRACE) Urine Glucose (UA) Negative mg/dL (NEG) Urine Ketones (Stick) Negative mg/dL (NEG) Urine Blood Negative (NEG) Urine Nitrite Negative (NEG) Urine Bilirubin Negative (NEG) Urine Urobilinogen Dipstick 0.2 mg/dL (0.2 mg/dL) Urine Leukocyte Esterase Negative (NEG) Urine RBC Occ /HPF (0-2) Urine WBC Occ /HPF (0-4) Urine Squamous Epithelial Cells Few /LPF Urine Bacteria 0 /HPF (0-FEW) Urine Mucus Mod /LPF White Blood Count 11.4 x10^3/uL (4.0-11.0) H Red Blood Count 5.20 x10^6/uL (4.30-5.70) Hemoglobin 15.9 g/dL (13.0-17.5) Hematocrit 46.2 % (39.0-53.0) Mean Corpuscular Volume 89 fL (79-100) Mean Corpuscular Hemoglobin 31 pg (25-35) Mean Corpuscular Hemoglobin Concent 34 g/dL (31-37) Red Cell Distribution Width 12.6 % (11.5-14.5) Platelet Count 188 x10^3/uL (140-400) Neutrophils (%) (Auto) 83 % (31-73) H Lymphocytes (%) (Auto) 8 % (24-48) L Monocytes (%) (Auto) 7 % (0-9) Eosinophils (%) (Auto) 1 % (0-3) Basophils (%) (Auto) 1 % (0-3) Neutrophils # (Auto) 9.5 x10^3/uL (1.8-7.7) H Lymphocytes # (Auto) 0.9 x10^3/uL (1.0-4.8) L Monocytes # (Auto) 0.8 x10^3/uL (0.0-1.1) Eosinophils # (Auto) 0.1 x10^3/uL (0.0-0.7) Basophils # (Auto) 0.1 x10^3/uL (0.0-0.2) Sodium Level 142 mmol/L (136-145) Potassium Level 4.3 mmol/L (3.5-5.1) Chloride Level 104 mmol/L (98-107) Carbon Dioxide Level 27 mmol/L (21-32) Anion Gap 11 (6-14) Blood Urea Nitrogen 15 mg/dL (8-26) Creatinine 0.8 mg/dL (0.7-1.3) Estimated GFR (Cockcroft-Gault) 98.0 BUN/Creatinine Ratio 19 (6-20) Glucose Level 181 mg/dL (70-99) H Calcium Level 9.1 mg/dL (8.5-10.1) Total Bilirubin 0.9 mg/dL (0.2-1.0) Aspartate Amino Transferase (AST) 30 U/L (15-37) Alanine Aminotransferase (ALT) 38 U/L (16-63) Alkaline Phosphatase 64 U/L (46-116) Troponin I Quantitative < 0.017 ng/mL (0.000-0.055) Total Protein 7.3 g/dL (6.4-8.2) Albumin 3.9 g/dL (3.4-5.0) Albumin/Globulin Ratio 1.1 (1.0-1.7) Lipase 560 U/L (73-393) H Laboratory Tests 08/18/19 22:10 Laboratory Tests 08/18/19 22:10 EKG EKG []EKG shows normal sinus rhythm rate of 56 no acute ischemic changes noted interpreted by me the time of encounter Radiology/Procedures Radiology/Procedures [] Impressions: Impression: 1. Several central mesenteric masses favored to represent pathologically enlarged lymph nodes with the largest seen just the left of the superior mesenteric artery and measuring approximately 2.9 x 4.5 x 3.9 cm. This presumed lymph node is centrally low attenuating and exhibits surrounding fatty stranding. Given reported pain and inflammatory changes, a process such as mesenteritis is a consideration though an underlying malignancy is not excluded. Note is also made that there are a few pathologically enlarged retroperitoneal lymph nodes which could be reactive or malignant. The location of these findings renders them difficult to biopsy. At a minimum, short-term follow-up is needed. 2. Indeterminate left adrenal gland nodule measuring 1.9 x 1.5 cm with a central density of approximately 50 Hounsfield units. A few indeterminate subcentimeter nodules are present within the right adrenal gland. These could be further evaluated with nonemergent dedicated CT adrenal gland mass protocol or could be evaluated for stability when follow-up is performed for lymphadenopathy. Electronically signed by: PAUL EAST MD (08/18/2019 11:33 PM) [facility] DICTATED and SIGNED BY: PAUL EAST MD DATE: 08/18/19 2333 Course & Med Decision Making Course & Med Decision Making Pertinent Labs and Imaging studies reviewed. (See chart for details) []64-year-old male with diffuse abdominal pain unclear etiology at this time lipase was mildly elevated did not reach the 3 times upper limit definition however could be possibly rising or contributing to some of his symptoms. Noted the CT abnormalities I reviewed them with the patient he was having recurrent pain we gave her multiple doses of narcotics in the emergency room I spoke with DR QUILES plan to admit for pain control and GI consult. I did not give the patient's antibiotics given the possible fatty stranding around the lymph node in case there is an infection developing there Dragon Disclaimer Dragon Disclaimer This electronic medical record was generated, in whole or in part, using a voice recognition dictation system. Departure Departure Impression: Primary Impression: Abdominal pain Disposition: ADMITTED INPATIENT Admitting Physician: Randy Quiles Condition: STABLE Referrals: Cristino QUILES MD (PCP) BEA CASANOVA MD Aug 19, 2019 00:25
[2019-08-19] MEDS ORDERED: CIPROFLOXACIN 400MG PREMIX 200 ML IV ONE (00:30)
[2019-08-19] MEDS ORDERED: ONDANSETRON PF 4 MG/2 ML VIAL. IV PRN (00:30)
--- NOTE | 2019-08-19 01:10 | NUR ---
The patient, CANDIS PORTER, 64 y/o, M admitted by Cristino QUILES MD, was given written information regarding hospital policies, unit procedures and contact persons. Valuables were checked and left in the room.
[2019-08-19] MEDS: IV NORMAL SALINE 1000ML BAG 1,000 ML IV SCH ×2 (01:16→12:54)
[2019-08-19] MEDS: MORPHINE SULFATE 4 MG/ML VIAL. IV PRN ×2 (08:32→20:33)
--- NOTE | 2019-08-19 11:16 | EKG ---
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
[2019-08-19] MEDS ORDERED: DEXTROSE 50% 25 GM / 50ML DISP.SYRIN. IV PRN (12:00)
[2019-08-19] MEDS: INSULIN LISPRO 300 UNITS/3 ML VIAL. SQ SCH ×2 (12:00→17:00)
[2019-08-19] MEDS ORDERED: METHYLDOPA 250 MG TABLET PO SCH (12:00)
--- NOTE | 2019-08-19 12:17 | PDOC1 ---
History and Physical Date of Admission Date of Admission 08/19/19 Identification/Chief Complaint Chief Complaint abd pain Source Source: Caregiver, Chart review, Patient History of Present Illness History of Present Illness He awakened at 1 am with rather acute abdominal pain yesterday am which lasted all day and more or less localized to his umbilical area and came to ER last night. Found to have a leukocytosis, was hyperglycemic and on CT imaging showed thickness of distal esophagus and enlarged abdominal lymph nodes suggestive of a mesenterictis. His notes he has recently had sulfuric smelling burps. 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 He denies fever, chills, night sweats. He danny chest pain or SOA. He does not have a significant GI history, he does not have a hx of diabetes Past Medical History Cardiovascular: HTN, Hyperlipidemia Pulmonary: No pertinent hx GI: Hemorrhoids Heme/Onc: No pertinent hx Hepatobiliary: No pertinent hx Psych: No pertinent hx Rheumatologic: Other (lumbar DDD followed by Dr. Gonzalez at pain clinic) Infectious disease: No pertinent hx ENT: No pertinent hx Renal/: No pertinent hx Endocrine: No pertinent hx Dermatology: Psoriasis Past Surgical History Past Surgical History: Other (hemorrhoidectomy) Family History Family History: Stroke Family History: Parent (mother) Social History Smoke: No ALCOHOL: social Drugs: None Current Problem List Problem List Problems Medical Problems: (1) Abdominal pain Status: Acute Current Medications Current Medications Current Medications Medications (Trade) Dose Ordered Sig/Odalis Start Time Stop Time Status Last Admin Dose Admin Amlodipine Besylate (Norvasc) 10 mg DAILY 08/19/19 12:00 Aspirin (Ecotrin) 81 mg DAILY 08/19/19 12:00 Atorvastatin Calcium (Lipitor) 40 mg HS 08/19/19 21:00 Ciprofloxacin/ Dextrose 200 ml @ 200 mls/hr 1X ONCE 08/19/19 00:30 08/19/19 01:29 DC 08/19/19 00:39 200 MLS/HR Dextrose (Dextrose 50%-Water Syringe) 12.5 gm PRN Q15MIN PRN 08/19/19 12:00 UNV Fish Oil (Fish Oil) 1,000 mg BID 08/19/19 12:00 Hydralazine HCl (Apresoline) 25 mg BID 08/19/19 12:00 Info (CONTRAST GIVEN -- Rx MONITORING) 1 each PRN DAILY PRN 08/18/19 22:45 08/20/19 22:44 Insulin Human Lispro (HumaLOG) 0-5 UNITS TIDWMEALS 08/19/19 12:00 UNV Iohexol (Omnipaque 300 Mg/ml) 75 ml 1X ONCE 08/18/19 22:45 08/18/19 22:46 DC 08/18/19 22:56 75 ML Lisinopril (Prinivil) 40 mg DAILY 08/19/19 12:00 Methyldopa (Aldomet) 250 mg BID 08/19/19 12:00 Metoprolol Tartrate (Lopressor) 50 mg BID 08/19/19 12:00 Metronidazole 100 ml @ 100 mls/hr 1X ONCE 08/19/19 00:30 08/19/19 01:29 DC 08/19/19 02:31 100 MLS/HR Morphine Sulfate (Morphine Sulfate) 4 mg PRN Q2HR PRN 08/19/19 00:30 08/20/19 00:29 08/19/19 08:32 4 MG Ondansetron HCl (Zofran) 4 mg PRN Q8HRS PRN 08/19/19 00:30 08/20/19 00:29 Sodium Chloride 1,000 ml @ 100 mls/hr Q10H 08/19/19 00:30 08/20/19 00:29 08/19/19 01:16 100 MLS/HR Vitamin D (Vitamin D3) 2,000 unit DAILY 08/19/19 12:00 Allergies Allergies Allergies Coded Allergies Type Severity Reaction Last Updated Verified venom-honey bee Allergy Severe swelling 06/24/16 Yes ROS Review of System CONSTITUTIONAL: No fever or chills EYES: No recent changes SKIN: No rash or itching CARDIOVASCULAR: No chest pain, syncope, palpitations, or edema RESPIRATORY: No SOB or cough GASTROINTESTINAL: see HPI NEUROLOGICAL: No headaches or weakness ENDOCRINE: No cold or heat intolerance GENITOURINARY: No urgency or frequency of urination MUSCULOSKELETAL: chronic lumbar back pain LYMPHATICS: No enlarged lymph nodes until last nights imaging PSYCHIATRIC: No anxiety or depression Physical Exam Physical Exam GEN.: No apparent distress. Alert and oriented. HEENT: Head is normocephalic, atraumatic NECK: Supple. LUNGS: Clear to auscultation. HEART: RRR, S1, S2 present. Peripheral pulses intact ABDOMEN: Soft, nontender. Positive bowel sounds. EXTREMITIES: Without any cyanosis. NEUROLOGIC: Normal speech, normal tone PSYCHIATRIC: Normal affect, normal mood. SKIN: No ulcerations Vitals Vitals Vital Signs Date Time Temp Pulse Resp B/P (MAP) Pulse Ox O2 Delivery O2 Flow Rate FiO2 08/19/19 11:00 98.2 56 18 131/69 (89) 95 Room Air 98.2 Labs Labs Laboratory Tests Test 08/18/19 21:10 08/18/19 22:10 Urine Collection Type Unknown Urine Color Yellow Urine Clarity Clear Urine pH 6.0 Urine Specific [place] 1.020 Urine Protein Negative mg/dL (NEG-TRACE) Urine Glucose (UA) Negative mg/dL (NEG) Urine Ketones (Stick) Negative mg/dL (NEG) Urine Blood Negative (NEG) Urine Nitrite Negative (NEG) Urine Bilirubin Negative (NEG) Urine Urobilinogen Dipstick 0.2 mg/dL (0.2 mg/dL) Urine Leukocyte Esterase Negative (NEG) Urine RBC Occ /HPF (0-2) Urine WBC Occ /HPF (0-4) Urine Squamous Epithelial Cells Few /LPF Urine Bacteria 0 /HPF (0-FEW) Urine Mucus Mod /LPF White Blood Count 11.4 x10^3/uL (4.0-11.0) Red Blood Count 5.20 x10^6/uL (4.30-5.70) Hemoglobin 15.9 g/dL (13.0-17.5) Hematocrit 46.2 % (39.0-53.0) Mean Corpuscular Volume 89 fL (79-100) Mean Corpuscular Hemoglobin 31 pg (25-35) Mean Corpuscular Hemoglobin Concent 34 g/dL (31-37) Red Cell Distribution Width 12.6 % (11.5-14.5) Platelet Count 188 x10^3/uL (140-400) Neutrophils (%) (Auto) 83 % (31-73) Lymphocytes (%) (Auto) 8 % (24-48) Monocytes (%) (Auto) 7 % (0-9) Eosinophils (%) (Auto) 1 % (0-3) Basophils (%) (Auto) 1 % (0-3) Neutrophils # (Auto) 9.5 x10^3/uL (1.8-7.7) Lymphocytes # (Auto) 0.9 x10^3/uL (1.0-4.8) Monocytes # (Auto) 0.8 x10^3/uL (0.0-1.1) Eosinophils # (Auto) 0.1 x10^3/uL (0.0-0.7) Basophils # (Auto) 0.1 x10^3/uL (0.0-0.2) Sodium Level 142 mmol/L (136-145) Potassium Level 4.3 mmol/L (3.5-5.1) Chloride Level 104 mmol/L (98-107) Carbon Dioxide Level 27 mmol/L (21-32) Anion Gap 11 (6-14) Blood Urea Nitrogen 15 mg/dL (8-26) Creatinine 0.8 mg/dL (0.7-1.3) Estimated GFR (Cockcroft-Gault) 98.0 BUN/Creatinine Ratio 19 (6-20) Glucose Level 181 mg/dL (70-99) Calcium Level 9.1 mg/dL (8.5-10.1) Total Bilirubin 0.9 mg/dL (0.2-1.0) Aspartate Amino Transf (AST/SGOT) 30 U/L (15-37) Alanine Aminotransferase (ALT/SGPT) 38 U/L (16-63) Alkaline Phosphatase 64 U/L (46-116) Troponin I Quantitative < 0.017 ng/mL (0.000-0.055) Total Protein 7.3 g/dL (6.4-8.2) Albumin 3.9 g/dL (3.4-5.0) Albumin/Globulin Ratio 1.1 (1.0-1.7) Lipase 560 U/L (73-393) Laboratory Tests Test 08/18/19 21:10 08/18/19 22:10 Urine Collection Type Unknown Urine Color Yellow Urine Clarity Clear Urine pH 6.0 Urine Specific [place] 1.020 Urine Protein Negative mg/dL (NEG-TRACE) Urine Glucose (UA) Negative mg/dL (NEG) Urine Ketones (Stick) Negative mg/dL (NEG) Urine Blood Negative (NEG) Urine Nitrite Negative (NEG) Urine Bilirubin Negative (NEG) Urine Urobilinogen Dipstick 0.2 mg/dL (0.2 mg/dL) Urine Leukocyte Esterase Negative (NEG) Urine RBC Occ /HPF (0-2) Urine WBC Occ /HPF (0-4) Urine Squamous Epithelial Cells Few /LPF Urine Bacteria 0 /HPF (0-FEW) Urine Mucus Mod /LPF White Blood Count 11.4 x10^3/uL (4.0-11.0) Red Blood Count 5.20 x10^6/uL (4.30-5.70) Hemoglobin 15.9 g/dL (13.0-17.5) Hematocrit 46.2 % (39.0-53.0) Mean Corpuscular Volume 89 fL (79-100) Mean Corpuscular Hemoglobin 31 pg (25-35) Mean Corpuscular Hemoglobin Concent 34 g/dL (31-37) Red Cell Distribution Width 12.6 % (11.5-14.5) Platelet Count 188 x10^3/uL (140-400) Neutrophils (%) (Auto) 83 % (31-73) Lymphocytes (%) (Auto) 8 % (24-48) Monocytes (%) (Auto) 7 % (0-9) Eosinophils (%) (Auto) 1 % (0-3) Basophils (%) (Auto) 1 % (0-3) Neutrophils # (Auto) 9.5 x10^3/uL (1.8-7.7) Lymphocytes # (Auto) 0.9 x10^3/uL (1.0-4.8) Monocytes # (Auto) 0.8 x10^3/uL (0.0-1.1) Eosinophils # (Auto) 0.1 x10^3/uL (0.0-0.7) Basophils # (Auto) 0.1 x10^3/uL (0.0-0.2) Sodium Level 142 mmol/L (136-145) Potassium Level 4.3 mmol/L (3.5-5.1) Chloride Level 104 mmol/L (98-107) Carbon Dioxide Level 27 mmol/L (21-32) Anion Gap 11 (6-14) Blood Urea Nitrogen 15 mg/dL (8-26) Creatinine 0.8 mg/dL (0.7-1.3) Estimated GFR (Cockcroft-Gault) 98.0 BUN/Creatinine Ratio 19 (6-20) Glucose Level 181 mg/dL (70-99) Calcium Level 9.1 mg/dL (8.5-10.1) Total Bilirubin 0.9 mg/dL (0.2-1.0) Aspartate Amino Transf (AST/SGOT) 30 U/L (15-37) Alanine Aminotransferase (ALT/SGPT) 38 U/L (16-63) Alkaline Phosphatase 64 U/L (46-116) Troponin I Quantitative < 0.017 ng/mL (0.000-0.055) Total Protein 7.3 g/dL (6.4-8.2) Albumin 3.9 g/dL (3.4-5.0) Albumin/Globulin Ratio 1.1 (1.0-1.7) Lipase 560 U/L (73-393) Images Images CT abd/pelvis: Findings: Left adrenal gland nodule, image 29 series 2, measuring 1.9 x 1.5 cm with an internal density of 50 Hounsfield units. Mildly nodular right adrenal gland such as on image 28 series 2 with nodularity at both limbs measuring approximately 7 mm. Unremarkable liver, pancreas and spleen. The kidneys are unremarkable. The colon, appendix, small bowel and stomach are unremarkable. Mild circumferential thickening of the distal esophageal wall. The prostate is within normal limits for size. Unremarkable urinary bladder. Calcific atherosclerosis of a nonaneurysmal abdominal aorta. No acute body wall soft tissue abnormality. Symmetric muscular bulk. Several prominent retroperitoneal lymph nodes are identified, the largest interposed between the inferior vena cava and aorta on image 47 series 2 measuring 1.9 cm in transverse dimension. Several mesenteric masses favored to represent lymph nodes such as to the left of the superior mesenteric artery, image 38 series 2, measures 2.9 cm transverse by 4.5 cm AP by 3.9 cm craniocaudal. Surrounding fat stranding. Additional smaller and less centrally low attenuating mesenteric lymph nodes such as on image 44 series 2 measuring just under 2 cm in short axis dimension. Scattered osseous degenerative changes, most notable at the L5-S1 level. No acute or destructive osseous abnormality. Impression: 1. Several central mesenteric masses favored to represent pathologically enlarged lymph nodes with the largest seen just the left of the superior mesenteric artery and measuring approximately 2.9 x 4.5 x 3.9 cm. This presumed lymph node is centrally low attenuating and exhibits surrounding fatty stranding. Given reported pain and inflammatory changes, a process such as mesenteritis is a consideration though an underlying malignancy is not excluded. Note is also made that there are a few pathologically enlarged retroperitoneal lymph nodes which could be reactive or malignant. The location of these findings renders them difficult to biopsy. At a minimum, short-term follow-up is needed. 2. Indeterminate left adrenal gland nodule measuring 1.9 x 1.5 cm with a central density of approximately 50 Hounsfield units. A few indeterminate subcentimeter nodules are present within the right adrenal gland. These could be further evaluated with nonemergent dedicated CT adrenal gland mass protocol or could be evaluated for stability when follow-up is performed for lymphadenopathy. VTE Prophylaxis Ordered VTE Prophylaxis Devices: No VTE Pharmacological Prophylaxi: No Assessment/Plan Assessment/Plan abdominal pain - acute - appears to be secondary to infectious/reactive mesenteric adenitis, he also has some swelling of distal esophagus and has had some recent rotten egg smelling burps. Continue cipro/metronidazole, GI consult elevated lipase without imaging evidence of stone or pancreatitis - recheck abnormal glucose without hx of diabetes, chesk A1c and start AC HS fingersticks HTN - resume home meds HLP with abdominal aorta atherosclerosis - resume home meds, cardiac diet hx of psoriasis obesity hx of LE lymphedema hx of lumbar DDD Cristino QUILES MD Aug 19, 2019 12:17
[2019-08-19] MEDS: ASPIRIN ENTERIC COATED 81 MG TABLET.DR. PO SCH (12:54)
[2019-08-19] MEDS: METOPROLOL TART IMMED RELEASE 50 MG TABLET. PO SCH ×2 (12:54→20:38)
[2019-08-19] MEDS: OMEGA-3 FATTY ACIDS/FISH OIL 1,000 MG CAPSULE. PO SCH ×2 (12:54→20:38)
[2019-08-19] MEDS: LISINOPRIL 20 MG TABLET PO SCH (12:54)
[2019-08-19] MEDS: CHOLECALCIFEROL (VITAMIN D3) 1,000 UNIT TABLET PO SCH (12:55)
[2019-08-19] MEDS: amLODIPine BESYLATE 10 MG TABLET PO SCH (12:55)
[2019-08-19] MEDS: hydrALAZINE 25 MG TABLET PO SCH ×2 (12:56→20:39)
[2019-08-19 12:58] LABS: BASO # 0.1 x10^3/uL (0.0-0.2); BASO % 1 % (0-3); EOS # 0.1 x10^3/uL (0.0-0.7); EOS % 1 % (0-3); HEMOGLOBIN 15.4 g/dL (13.0-17.5); LYMPH # 1.1 x10^3/uL (1.0-4.8); LYMPH % 10 % (24-48); MEAN CORPUSCULAR HEMOGLOBIN 31 pg (25-35); MEAN CORPUSCULAR HGB CONC 34 g/dL (31-37); MEAN CORPUSCULAR VOLUME 90 fL (79-100); MONO # 0.9 x10^3/uL (0.0-1.1); MONO % 9 % (0-9); NEUT # 8.6 x10^3/uL (1.8-7.7); NEUT % 80 % (31-73); PLATELET COUNT 167 x10^3/uL (140-400); RED BLOOD COUNT 5.02 x10^6/uL (4.30-5.70); RED CELL DISTRIBUTION WIDTH 12.8 % (11.5-14.5); WHITE BLOOD COUNT 10.7 x10^3/uL (4.0-11.0)
[2019-08-19 13:16] LABS: ALBUMIN 3.6 g/dL (3.4-5.0); ALBUMIN/GLOBULIN RATIO 0.9 (1.0-1.7); CALCIUM 8.8 mg/dL (8.5-10.1); CREATININE 0.8 mg/dL (0.7-1.3); POTASSIUM 3.7 mmol/L (3.5-5.1); TOTAL BILIRUBIN 1.6 mg/dL (0.2-1.0); TOTAL PROTEIN 7.4 g/dL (6.4-8.2)
--- NOTE | 2019-08-19 13:50 | PDOC2 ---
GI CONSULT Reason For Consult: Abdominal pain/abnormal CT HPI: HPI: 64 y/o male who awoke ~0100 08/17 with abdominal pain. Describes roughly periumbilical/supraumbilical discomfort of crampy/achy nature. Was able to eat w/o worsening, but anorectic. No nausea or vomiting. Worse all Tuesday, ultimately presented to ER and admitted. No change in bowels with this. No provocative or palliative maneuvers. Has improved since admission but still some. No prior h/o similar pain in past. Denies HB, dysphagia, PUD, GB, liver or pancreatic history. No tobacco use. Rarely drinks. Daily 81mg ASA, occasional OTC NSAID. No diarrhea, constipation, overt bleeding. Wt. OK. Negative screening colono scopy 2010 save known internal hemorrhoids. GIFH negative. PMH: PMH: HTN, HLP. Hemorrhoidectomy. FH: Family History: Other (Parkinson's (father)) Social History: Smoke: No ALCOHOL: social Drugs: None ROS: GEN: Denies fevers, chills, sweats HEENT: Denies blurred vision, sore throat CV: Denies chest pain RESP: Denies shortness of air, cough GI: Per HPI : Denies hematuria, dysuria ENDO: Denies weight changes NEURO: Denies confusion, dizziness MSK: Denies weakness, joint pain/swelling SKIN: Denies jaundice, pruritus Vitals: Vitals: Vital Signs Date Time Temp Pulse Resp B/P (MAP) Pulse Ox O2 Delivery O2 Flow Rate FiO2 08/19/19 12:56 56 131/69 08/19/19 11:00 98.2 18 95 Room Air 98.2 Labs: Labs: Laboratory Tests Test 08/18/19 21:10 08/18/19 22:10 08/19/19 12:45 Urine Collection Type Unknown Urine Color Yellow Urine Clarity Clear Urine pH 6.0 Urine Specific [place] 1.020 Urine Protein Negative mg/dL (NEG-TRACE) Urine Glucose (UA) Negative mg/dL (NEG) Urine Ketones (Stick) Negative mg/dL (NEG) Urine Blood Negative (NEG) Urine Nitrite Negative (NEG) Urine Bilirubin Negative (NEG) Urine Urobilinogen Dipstick 0.2 mg/dL (0.2 mg/dL) Urine Leukocyte Esterase Negative (NEG) Urine RBC Occ /HPF (0-2) Urine WBC Occ /HPF (0-4) Urine Squamous Epithelial Cells Few /LPF Urine Bacteria 0 /HPF (0-FEW) Urine Mucus Mod /LPF White Blood Count 11.4 x10^3/uL (4.0-11.0) 10.7 x10^3/uL (4.0-11.0) Red Blood Count 5.20 x10^6/uL (4.30-5.70) 5.02 x10^6/uL (4.30-5.70) Hemoglobin 15.9 g/dL (13.0-17.5) 15.4 g/dL (13.0-17.5) Hematocrit 46.2 % (39.0-53.0) 45.0 % (39.0-53.0) Mean Corpuscular Volume 89 fL (79-100) 90 fL (79-100) Mean Corpuscular Hemoglobin 31 pg (25-35) 31 pg (25-35) Mean Corpuscular Hemoglobin Concent 34 g/dL (31-37) 34 g/dL (31-37) Red Cell Distribution Width 12.6 % (11.5-14.5) 12.8 % (11.5-14.5) Platelet Count 188 x10^3/uL (140-400) 167 x10^3/uL (140-400) Neutrophils (%) (Auto) 83 % (31-73) 80 % (31-73) Lymphocytes (%) (Auto) 8 % (24-48) 10 % (24-48) Monocytes (%) (Auto) 7 % (0-9) 9 % (0-9) Eosinophils (%) (Auto) 1 % (0-3) 1 % (0-3) Basophils (%) (Auto) 1 % (0-3) 1 % (0-3) Neutrophils # (Auto) 9.5 x10^3/uL (1.8-7.7) 8.6 x10^3/uL (1.8-7.7) Lymphocytes # (Auto) 0.9 x10^3/uL (1.0-4.8) 1.1 x10^3/uL (1.0-4.8) Monocytes # (Auto) 0.8 x10^3/uL (0.0-1.1) 0.9 x10^3/uL (0.0-1.1) Eosinophils # (Auto) 0.1 x10^3/uL (0.0-0.7) 0.1 x10^3/uL (0.0-0.7) Basophils # (Auto) 0.1 x10^3/uL (0.0-0.2) 0.1 x10^3/uL (0.0-0.2) Sodium Level 142 mmol/L (136-145) 140 mmol/L (136-145) Potassium Level 4.3 mmol/L (3.5-5.1) 3.7 mmol/L (3.5-5.1) Chloride Level 104 mmol/L (98-107) 103 mmol/L (98-107) Carbon Dioxide Level 27 mmol/L (21-32) 30 mmol/L (21-32) Anion Gap 11 (6-14) 7 (6-14) Blood Urea Nitrogen 15 mg/dL (8-26) 9 mg/dL (8-26) Creatinine 0.8 mg/dL (0.7-1.3) 0.8 mg/dL (0.7-1.3) Estimated GFR (Cockcroft-Gault) 98.0 98.0 BUN/Creatinine Ratio 19 (6-20) 11 (6-20) Glucose Level 181 mg/dL (70-99) 111 mg/dL (70-99) Calcium Level 9.1 mg/dL (8.5-10.1) 8.8 mg/dL (8.5-10.1) Total Bilirubin 0.9 mg/dL (0.2-1.0) 1.6 mg/dL (0.2-1.0) Aspartate Amino Transf (AST/SGOT) 30 U/L (15-37) 19 U/L (15-37) Alanine Aminotransferase (ALT/SGPT) 38 U/L (16-63) 23 U/L (16-63) Alkaline Phosphatase 64 U/L (46-116) 65 U/L (46-116) Troponin I Quantitative < 0.017 ng/mL (0.000-0.055) Total Protein 7.3 g/dL (6.4-8.2) 7.4 g/dL (6.4-8.2) Albumin 3.9 g/dL (3.4-5.0) 3.6 g/dL (3.4-5.0) Albumin/Globulin Ratio 1.1 (1.0-1.7) 0.9 (1.0-1.7) Lipase 560 U/L (73-393) 228 U/L (73-393) Amylase Level 36 U/L (25-115) Trivial elevation of lipase initially, now normal. Allergies: Coded Allergies: venom-honey bee (Verified Allergy, Severe, swelling, 06/24/16) Medications: Current Medications Medications (Trade) Dose Ordered Sig/Odalis Route PRN Reason Start Time Stop Time Status Last Admin Dose Admin Sodium Chloride 1,000 ml @ 1,000 mls/hr 1X ONCE IV 08/18/19 22:15 08/18/19 23:14 DC 08/18/19 22:28 Ondansetron HCl (Zofran) 4 mg 1X ONCE IV 08/18/19 22:15 08/18/19 22:16 DC 08/18/19 22:27 Morphine Sulfate (Morphine Sulfate) 4 mg 1X ONCE IV 08/18/19 22:15 08/18/19 22:16 DC 08/18/19 22:27 Iohexol (Omnipaque 300 Mg/ml) 75 ml 1X ONCE IV 08/18/19 22:45 08/18/19 22:46 DC 08/18/19 22:56 Morphine Sulfate (Morphine Sulfate) 4 mg 1X ONCE IV 08/19/19 00:15 08/19/19 00:16 DC 08/19/19 00:39 Morphine Sulfate (Morphine Sulfate) 4 mg PRN Q2HR PRN IV PAIN 08/19/19 00:30 08/20/19 00:29 08/19/19 08:32 Sodium Chloride 1,000 ml @ 100 mls/hr Q10H IV 08/19/19 00:30 08/20/19 00:29 08/19/19 12:54 Ciprofloxacin/ Dextrose 200 ml @ 200 mls/hr 1X ONCE IV 08/19/19 00:30 08/19/19 01:29 DC 08/19/19 00:39 Metronidazole 100 ml @ 100 mls/hr 1X ONCE IV 08/19/19 00:30 08/19/19 01:29 DC 08/19/19 02:31 Amlodipine Besylate (Norvasc) 10 mg DAILY PO 08/19/19 12:00 08/19/19 12:55 Aspirin (Ecotrin) 81 mg DAILY PO 08/19/19 12:00 08/19/19 12:54 Hydralazine HCl (Apresoline) 25 mg BID PO 08/19/19 12:00 08/19/19 12:56 Lisinopril (Prinivil) 40 mg DAILY PO 08/19/19 12:00 08/19/19 12:54 Metoprolol Tartrate (Lopressor) 50 mg BID PO 08/19/19 12:00 08/19/19 12:54 Vitamin D (Vitamin D3) 2,000 unit DAILY PO 08/19/19 12:00 08/19/19 12:55 Fish Oil (Fish Oil) 1,000 mg BID PO 08/19/19 12:00 08/19/19 12:54 Imaging: Imaging: On CT: Findings: Left adrenal gland nodule, image 29 series 2, measuring 1.9 x 1.5 cm with an internal density of 50 Hounsfield units. Mildly nodular right adrenal gland such as on image 28 series 2 with nodularity at both limbs measuring approximately 7 mm. Unremarkable liver, pancreas and spleen. The kidneys are unremarkable. The colon, appendix, small bowel and stomach are unremarkable. Mild circumferential thickening of the distal esophageal wall. The prostate is within normal limits for size. Unremarkable urinary bladder. Calcific atherosclerosis of a nonaneurysmal abdominal aorta. No acute body wall soft tissue abnormality. Symmetric muscular bulk. Several prominent retroperitoneal lymph nodes are identified, the largest interposed between the inferior vena cava and aorta on image 47 series 2 measuring 1.9 cm in transverse dimension. Several mesenteric masses favored to represent lymph nodes such as to the left of the superior mesenteric artery, image 38 series 2, measures 2.9 cm transverse by 4.5 cm AP by 3.9 cm craniocaudal. Surrounding fat stranding. Additional smaller and less centrally low attenuating mesenteric lymph nodes such as on image 44 series 2 measuring just under 2 cm in short axis dimension. Scattered osseous degenerative changes, most notable at the L5-S1 level. No acute or destructive osseous abnormality. Impression: 1. Several central mesenteric masses favored to represent pathologically enlarged lymph nodes with the largest seen just the left of the superior mesenteric artery and measuring approximately 2.9 x 4.5 x 3.9 cm. This presumed lymph node is centrally low attenuating and exhibits surrounding fatty stranding. Given reported pain and inflammatory changes, a process such as mesenteritis is a consideration though an underlying malignancy is not excluded. Note is also made that there are a few pathologically enlarged retroperitoneal lymph nodes which could be reactive or malignant. The location of these findings renders them difficult to biopsy. At a minimum, short-term follow-up is needed. 2. Indeterminate left adrenal gland nodule measuring 1.9 x 1.5 cm with a central density of approximately 50 Hounsfield units. A few indeterminate subcentimeter nodules are present within the right adrenal gland. These could be further evaluated with nonemergent dedicated CT adrenal gland mass protocol or could be evaluated for stability when follow-up is performed for lymphadenopathy. PE: GEN: NAD HEENT: Atraumatic, PERRLA LUNGS: CTAB HEART: RRR, no murmurs ABD: NABS, S/ND/NT, no masses EXTREMITY: No edema SKIN: No rashes, no jaundice NEURO/PSYCH: A & O �3 A/P: A/P: IMP: Mid-abdominal pain. Nothing on exam, history or imaging to strongly suggest GI source. Real source not apparent. No signs of obstruction. Lymphadenopathy, adrenal abnormality on CT. CRC screening; UTD last in 2010. REC: Observe. Consider Heme/Onc opinion. Check LDH Other pending. Thanks. CANDIS LOPEZ MD Aug 19, 2019 13:50
[2019-08-19] MEDS: ATORVASTATIN CALCIUM 40 MG TABLET. PO SCH (20:38)
[2019-08-19] MEDS: CIPROFLOXACIN 200MG PREMIX 100 ML IV SCH (20:39)
[2019-08-19] MEDS: LACTOBACILLUS RHAMNOSUS GG 1 CAPSULE. PO SCH (20:41)
[2019-08-20] MEDS: IV NORMAL SALINE 1000ML BAG 1,000 ML IV SCH (02:04)
[2019-08-20 03:00] VITALS: BP 109/47
[2019-08-20 03:11] LABS: HEMOGLOBIN A1C 5.8 % (4.8-5.6)
[2019-08-20 05:52] LABS: BASO % 1 % (0-3); EOS # 0.1 x10^3/uL (0.0-0.7); EOS % 1 % (0-3); HEMATOCRIT 43.6 % (39.0-53.0); HEMOGLOBIN 15.1 g/dL (13.0-17.5); LYMPH # 1.3 x10^3/uL (1.0-4.8); LYMPH % 13 % (24-48); MEAN CORPUSCULAR HEMOGLOBIN 31 pg (25-35); MEAN CORPUSCULAR HGB CONC 35 g/dL (31-37); MEAN CORPUSCULAR VOLUME 90 fL (79-100); MONO # 1.1 x10^3/uL (0.0-1.1); MONO % 12 % (0-9); NEUT # 7.2 x10^3/uL (1.8-7.7); NEUT % 74 % (31-73); PLATELET COUNT 159 x10^3/uL (140-400); RED BLOOD COUNT 4.85 x10^6/uL (4.30-5.70); WHITE BLOOD COUNT 9.7 x10^3/uL (4.0-11.0)
[2019-08-20 06:26] LABS: ALBUMIN 3.3 g/dL (3.4-5.0); ALBUMIN/GLOBULIN RATIO 0.9 (1.0-1.7); CALCIUM 8.7 mg/dL (8.5-10.1); CREATININE 0.9 mg/dL (0.7-1.3); GFR 85.5; POTASSIUM 3.6 mmol/L (3.5-5.1); TOTAL BILIRUBIN 1.4 mg/dL (0.2-1.0); TOTAL PROTEIN 7.1 g/dL (6.4-8.2)
[2019-08-20 07:00] VITALS: BP 147/83
[2019-08-20] MEDS: INSULIN LISPRO 300 UNITS/3 ML VIAL. SQ SCH ×3 (08:00→17:00)
[2019-08-20] MEDS: LACTOBACILLUS RHAMNOSUS GG 1 CAPSULE. PO SCH ×2 (09:00→20:31)
[2019-08-20] MEDS: OMEGA-3 FATTY ACIDS/FISH OIL 1,000 MG CAPSULE. PO SCH ×2 (09:48→20:30)
[2019-08-20] MEDS: ASPIRIN ENTERIC COATED 81 MG TABLET.DR. PO SCH (09:48)
[2019-08-20] MEDS: CHOLECALCIFEROL (VITAMIN D3) 1,000 UNIT TABLET PO SCH (09:49)
[2019-08-20] MEDS: amLODIPine BESYLATE 10 MG TABLET PO SCH (09:49)
[2019-08-20] MEDS: hydrALAZINE 25 MG TABLET PO SCH ×2 (09:50→20:31)
[2019-08-20] MEDS: METOPROLOL TART IMMED RELEASE 50 MG TABLET. PO SCH ×2 (09:50→20:32)
[2019-08-20] MEDS: LISINOPRIL 20 MG TABLET PO SCH (09:51)
--- NOTE | 2019-08-20 10:12 | PDOC ---
Subjective: Subjective: Pain better overall - did get a bit worse last night after dinner but tolerated breakfast without issue this morning. Passing flatus, no stool. Objective: Objective: Oncology asked to see. Vital Signs: Vital Signs Date Time Temp Pulse Resp B/P (MAP) Pulse Ox O2 Delivery O2 Flow Rate FiO2 08/20/19 09:51 63 147/83 08/20/19 07:00 97.9 18 94 Room Air 97.9 Labs: Laboratory Tests Test 08/19/19 12:35 08/19/19 12:45 08/19/19 17:14 08/19/19 21:35 Glucose (Fingerstick) 114 mg/dL 132 mg/dL 149 mg/dL White Blood Count 10.7 x10^3/uL Red Blood Count 5.02 x10^6/uL Hemoglobin 15.4 g/dL Hematocrit 45.0 % Mean Corpuscular Volume 90 fL Mean Corpuscular Hemoglobin 31 pg Mean Corpuscular Hemoglobin Concent 34 g/dL Red Cell Distribution Width 12.8 % Platelet Count 167 x10^3/uL Neutrophils (%) (Auto) 80 % Lymphocytes (%) (Auto) 10 % Monocytes (%) (Auto) 9 % Eosinophils (%) (Auto) 1 % Basophils (%) (Auto) 1 % Neutrophils # (Auto) 8.6 x10^3/uL Lymphocytes # (Auto) 1.1 x10^3/uL Monocytes # (Auto) 0.9 x10^3/uL Eosinophils # (Auto) 0.1 x10^3/uL Basophils # (Auto) 0.1 x10^3/uL Sodium Level 140 mmol/L Potassium Level 3.7 mmol/L Chloride Level 103 mmol/L Carbon Dioxide Level 30 mmol/L Anion Gap 7 Blood Urea Nitrogen 9 mg/dL Creatinine 0.8 mg/dL Estimated GFR (Cockcroft-Gault) 98.0 BUN/Creatinine Ratio 11 Glucose Level 111 mg/dL Hemoglobin A1c 5.8 % Calcium Level 8.8 mg/dL Total Bilirubin 1.6 mg/dL Aspartate Amino Transf (AST/SGOT) 19 U/L Alanine Aminotransferase (ALT/SGPT) 23 U/L Alkaline Phosphatase 65 U/L Lactate Dehydrogenase 218 U/L Total Protein 7.4 g/dL Albumin 3.6 g/dL Albumin/Globulin Ratio 0.9 Amylase Level 36 U/L Lipase 228 U/L Test 08/20/19 05:00 White Blood Count 9.7 x10^3/uL Red Blood Count 4.85 x10^6/uL Hemoglobin 15.1 g/dL Hematocrit 43.6 % Mean Corpuscular Volume 90 fL Mean Corpuscular Hemoglobin 31 pg Mean Corpuscular Hemoglobin Concent 35 g/dL Red Cell Distribution Width 13.0 % Platelet Count 159 x10^3/uL Neutrophils (%) (Auto) 74 % Lymphocytes (%) (Auto) 13 % Monocytes (%) (Auto) 12 % Eosinophils (%) (Auto) 1 % Basophils (%) (Auto) 1 % Neutrophils # (Auto) 7.2 x10^3/uL Lymphocytes # (Auto) 1.3 x10^3/uL Monocytes # (Auto) 1.1 x10^3/uL Eosinophils # (Auto) 0.1 x10^3/uL Basophils # (Auto) 0.0 x10^3/uL Sodium Level 142 mmol/L Potassium Level 3.6 mmol/L Chloride Level 104 mmol/L Carbon Dioxide Level 28 mmol/L Anion Gap 10 Blood Urea Nitrogen 11 mg/dL Creatinine 0.9 mg/dL Estimated GFR (Cockcroft-Gault) 85.5 BUN/Creatinine Ratio 12 Glucose Level 98 mg/dL Calcium Level 8.7 mg/dL Total Bilirubin 1.4 mg/dL Aspartate Amino Transf (AST/SGOT) 20 U/L Alanine Aminotransferase (ALT/SGPT) 23 U/L Alkaline Phosphatase 62 U/L Total Protein 7.1 g/dL Albumin 3.3 g/dL Albumin/Globulin Ratio 0.9 PE: GEN: NAD LUNGS: CTAB HEART: RRR ABD: NABS, S/ND, not particularly tender currently NEURO/PSYCH: A & O �3 A/P: Mid-abdominal cramping - better Lymphadenopathy, adrenal abnormality -- Heme/onc to see, await this. LDH normal. ELI MARTINEZ Aug 20, 2019 10:12
[2019-08-20] MEDS ORDERED: POLYETHYLENE GLYCOL 3350 17 GM PACKET. PO PRN (10:15)
[2019-08-20 11:00] VITALS: BP 157/75
[2019-08-20] MEDS: ACETAMINOPHEN 325 MG TABLET. PO PRN ×2 (11:15→20:30)
--- NOTE | 2019-08-20 12:14 | NUR ---
SS following for discharge planning. SS reviewed pt chart. Pt is from with spouse and is currently on room air. SS will continue to follow for discharge planning.
[2019-08-20] MEDS ORDERED: IOHEXOL 300 MG/ML 100ML VIAL. IV ONE (13:30)
[2019-08-20] MEDS ORDERED: CONTRAST GIVEN. MC PRN (13:45)
[2019-08-20 15:00] VITALS: BP 142/78
[2019-08-20 15:47] LABS: PROTHROMBIN TIME PATIENT 13.5 SEC (11.7-14.0)
--- NOTE | 2019-08-20 16:14 | PDOC ---
PROGRESS NOTES Subjective He is still mildly bloated and not had a BM since admission but eating well Objective Afebrile General: NAD,A&O Heart: RRR Lungs: CTA Abd: soft and non tender, minimally bloated Ext: no C/C/E Vital Signs Vital Signs Date Time Temp Pulse Resp B/P (MAP) Pulse Ox O2 Delivery O2 Flow Rate FiO2 08/20/19 15:00 98.0 60 18 142/78 (99) 94 Room Air 98.0 I & O Intake and Output 08/20/19 07:00 # Voids 2 Assessment and Plan abdominal pain - acute - appears to be secondary to infectious/reactive mesenteric adenitis, he also has some swelling of distal esophagus and has had some recent rotten egg smelling burps. Continue cipro/metronidazole, GI con sult 4 cm abdominal lymph node - Heme consult, IR could do FNA elevated lipase without imaging evidence of stone or pancreatitis - recheck shows it is back to normal abnormal glucose without hx of diabetes, A1c 5.8, cont AC HS fingersticks HTN - resume home meds HLP with abdominal aorta atherosclerosis - resume home meds, cardiac diet hx of psoriasis obesity hx of LE lymphedema hx of lumbar DDD Cristino QUILES MD Aug 20, 2019 16:14
--- NOTE | 2019-08-20 16:44 | RAD ---
CHEST CT WITH CONTRAST Clinical indications: Lymphadenopathy. TECHNIQUE: After IV infusion of 75 cc of Omnipaque 300, helical CT scanning of the chest was performed. PQRS compliance Statement One or more of the following individualized dose reduction techniques were utilized for this study: 1. Automated exposure control 2. Adjustment of the mA and/or kV according to patient size 3. Use of iterative reconstruction technique COMPARISON: No previous chest CT. FINDINGS: No enlarged thoracic lymphadenopathy is evident. No focal aneurysmal dilatation or dissection of the thoracic aorta is seen. The heart size is normal and no pericardial effusion is seen. Again seen is a mesenteric soft tissue mass noted on the previous study dated August 18, 2019. There is a left adrenal nodule seen previously. No lung infiltrate or lung mass is evident. No pleural effusion or pneumothorax is seen. The proximal bronchial tree is patent. No lytic process is seen. IMPRESSION: No acute lung infiltrate or lung mass. No enlarged thoracic lymphadenopathy. Electronically signed by: Lorne Napier MD (08/20/2019 4:41 PM) [id number]
--- NOTE | 2019-08-20 16:47 | CONS ---
DATE OF CONSULTATION: 08/20/2019 MEDICAL ONCOLOGY CONSULTATION REPORT REQUESTING PHYSICIAN: Chad Davila MD. REASON FOR CONSULTATION: Lymphadenopathy in the abdomen. HISTORY OF PRESENT ILLNESS: The patient is a 64-year-old gentleman who had acute onset of abdominal pain on 08/18/2019. It was generalized pain, but more pronounced in the periumbilical region. He denies any nausea or vomiting. He has had constipation, but no diarrhea. No hematemesis, melena or hematochezia. No hemoptysis or hematuria. No fevers, chills or night sweats. He denies diarrhea or hot flashes. He presented to [facility] and he underwent a CT scan of the abdomen on 08/18/2019 which revealed several central mesenteric masses favored to represent enlarged lymph nodes with the largest just to the left of the superior mesenteric artery measuring 2.9 x 4.5 x 3.9 cm. Possible mesenteritis versus malignancy are the differential diagnoses. There are few other pathologically enlarged retroperitoneal lymph nodes. Left adrenal gland nodule measuring 1.9 x 1.5 cm is noted. Small nodule in the right adrenal gland is also noted. I was asked to see the patient for further evaluation of lymphadenopathy. PAST MEDICAL HISTORY: Hypertension, hyperlipidemia, hemorrhoids. SOCIAL HISTORY: No smoking or alcohol abuse. FAMILY HISTORY: Positive for stroke. REVIEW OF SYSTEMS: A 12-point review of system was performed. Pertinent positives are mentioned in the history of present illness. Rest of the system review is negative. PHYSICAL EXAMINATION: GENERAL APPEARANCE: The patient is a 64-year-old gentleman who is well developed and nourished and in no acute cardiorespiratory distress. VITAL SIGNS: Blood pressure 157/75, temperature 98.3. HEAD: Atraumatic, normocephalic. EYES: No icterus. NECK: Supple. CHEST: Bilaterally symmetrical. HEART: S1, S2 normal. ABDOMEN: Soft, nontender. CENTRAL NERVOUS SYSTEM: No focal deficits. LYMPHATICS: No lymphadenopathy. SKIN: No rashes. PSYCHOLOGIC: Mood and affect are appropriate. LABORATORY DATA: WBC 9.7, hemoglobin 15.1, platelet count 159, monocytes 12%, absolute monocyte count is normal at 1.1. Sodium 142, potassium 3.6, creatinine 0.9, calcium 8.7, total bilirubin 1.4, AST 20, ALT 23, alkaline phosphatase 62, LDH 218, total protein 7.1, albumin 3.3. IMPRESSION AND PLAN: 1. Abdominal lymphadenopathy with the largest lymph node measuring 4.5 cm. No evidence of fever or night sweats. I discussed with Interventional Radiology, Dr. Panfilo Guerin. Dr. Guerin mentioned that these lymph nodes are in a difficult location for a biopsy with core needle, but fine needle aspiration can be attempted. Hence, I discussed with the patient and his and they agreed to proceed with fine needle aspiration and I ordered the procedure. I also discussed with Dr. Emmanuel Davila. I discussed the differential diagnosis of reactive lymphadenopathy versus malignancy and the need for further workup and the patient agrees. 2. Abdominal pain. Continue to monitor. Continue supportive care. 3. Leukocytosis. WBC 11.4 on 08/18/2019, has now resolved. 4. I will also obtain a CT scan of the chest to evaluate for lymphadenopathy. 5. Adrenal nodules bilaterally. Continue to monitor. BETSY FORTE MD DR: ROSANGELA/shine JOB#: [id number] / [id number]
[2019-08-20 19:00] VITALS: BP 70/70
[2019-08-20] MEDS: ATORVASTATIN CALCIUM 40 MG TABLET. PO SCH (20:31)
[2019-08-20] MEDS: CIPROFLOXACIN 200MG PREMIX 100 ML IV SCH (20:32)
[2019-08-20 23:00] VITALS: BP 121/61
[2019-08-21] VITALS (12 sets, daily range): BP systolic 125–149; BP diastolic 71–96
[2019-08-21] MEDS ORDERED: POLYETHYLENE GLYCOL 3350 17 GM PACKET. PO PRN (08:45)
[2019-08-21] MEDS ORDERED: DOCUSATE SODIUM 100 MG CAPSULE. PO SCH (09:00)
--- NOTE | 2019-08-21 09:06 | PDOC ---
PROGRESS NOTES Subjective Subjective HPI - f/u of Abdominal lymphadenopathy ROS - abd pain better Objective Objective Vital Signs Date Time Temp Pulse Resp B/P (MAP) Pulse Ox O2 Delivery O2 Flow Rate FiO2 08/21/19 07:53 Room Air 08/21/19 07:00 98.4 75 18 125/73 (90) 94 98.4 Intake and Output 08/21/19 07:00 Intake Total 0 ml Balance 0 ml Intake Oral 0 ml # Voids 3 Physical Exam Heart: Normal S1, Normal S2 General: Alert, Oriented X3 Lungs: Clear to auscultation Neuro: Normal speech Psych/Mental Status: Mental status NL Assessment Assessment Problems Medical Problems: (1) Abdominal pain Status: Acute IMPRESSION AND PLAN: 1. Abdominal lymphadenopathy with the largest lymph node measuring 4.5 cm. No evidence of fever or night sweats. I discussed with Interventional Radiology, Dr. Panfilo Guerin. Dr. Guerin mentioned that these lymph nodes are in a difficult location for a biopsy with core needle, but fine needle aspiration can be attempted. Hence, I discussed with the patient and his and they agreed to proceed with fine needle aspiration and I ordered the procedure. I also discussed with Dr. Emmanuel Davila. I discussed the differential diagnosis of reactive lymphadenopathy versus malignancy and the need for further workup and the patient agrees. Plan LN bx 08/21/19. I d/w Dr Guerin. f/u with me next week. 2. Abdominal pain. Continue to monitor. Continue supportive care. 3. Leukocytosis. WBC 11.4 on 08/18/2019, has now resolved. 4. CT scan of the chest 08/20/19 reveals no lymphadenopathy. 5. Adrenal nodules bilaterally. Continue to monitor. Comment Review of Relevant I have reviewed the following items ravi (where applicable) has been applied. Labs Laboratory Tests Test 08/19/19 12:35 08/19/19 12:45 08/19/19 17:14 08/19/19 21:35 Glucose (Fingerstick) 114 mg/dL (70-99) 132 mg/dL (70-99) 149 mg/dL (70-99) White Blood Count 10.7 x10^3/uL (4.0-11.0) Red Blood Count 5.02 x10^6/uL (4.30-5.70) Hemoglobin 15.4 g/dL (13.0-17.5) Hematocrit 45.0 % (39.0-53.0) Mean Corpuscular Volume 90 fL (79-100) Mean Corpuscular Hemoglobin 31 pg (25-35) Mean Corpuscular Hemoglobin Concent 34 g/dL (31-37) Red Cell Distribution Width 12.8 % (11.5-14.5) Platelet Count 167 x10^3/uL (140-400) Neutrophils (%) (Auto) 80 % (31-73) Lymphocytes (%) (Auto) 10 % (24-48) Monocytes (%) (Auto) 9 % (0-9) Eosinophils (%) (Auto) 1 % (0-3) Basophils (%) (Auto) 1 % (0-3) Neutrophils # (Auto) 8.6 x10^3/uL (1.8-7.7) Lymphocytes # (Auto) 1.1 x10^3/uL (1.0-4.8) Monocytes # (Auto) 0.9 x10^3/uL (0.0-1.1) Eosinophils # (Auto) 0.1 x10^3/uL (0.0-0.7) Basophils # (Auto) 0.1 x10^3/uL (0.0-0.2) Sodium Level 140 mmol/L (136-145) Potassium Level 3.7 mmol/L (3.5-5.1) Chloride Level 103 mmol/L (98-107) Carbon Dioxide Level 30 mmol/L (21-32) Anion Gap 7 (6-14) Blood Urea Nitrogen 9 mg/dL (8-26) Creatinine 0.8 mg/dL (0.7-1.3) Estimated GFR (Cockcroft-Gault) 98.0 BUN/Creatinine Ratio 11 (6-20) Glucose Level 111 mg/dL (70-99) Hemoglobin A1c 5.8 % (4.8-5.6) Calcium Level 8.8 mg/dL (8.5-10.1) Total Bilirubin 1.6 mg/dL (0.2-1.0) Aspartate Amino Transf (AST/SGOT) 19 U/L (15-37) Alanine Aminotransferase (ALT/SGPT) 23 U/L (16-63) Alkaline Phosphatase 65 U/L (46-116) Lactate Dehydrogenase 218 U/L (85-227) Total Protein 7.4 g/dL (6.4-8.2) Albumin 3.6 g/dL (3.4-5.0) Albumin/Globulin Ratio 0.9 (1.0-1.7) Amylase Level 36 U/L (25-115) Lipase 228 U/L (73-393) Test 08/20/19 05:00 08/20/19 07:37 08/20/19 10:56 08/20/19 15:00 White Blood Count 9.7 x10^3/uL (4.0-11.0) Red Blood Count 4.85 x10^6/uL (4.30-5.70) Hemoglobin 15.1 g/dL (13.0-17.5) Hematocrit 43.6 % (39.0-53.0) Mean Corpuscular Volume 90 fL (79-100) Mean Corpuscular Hemoglobin 31 pg (25-35) Mean Corpuscular Hemoglobin Concent 35 g/dL (31-37) Red Cell Distribution Width 13.0 % (11.5-14.5) Platelet Count 159 x10^3/uL (140-400) Neutrophils (%) (Auto) 74 % (31-73) Lymphocytes (%) (Auto) 13 % (24-48) Monocytes (%) (Auto) 12 % (0-9) Eosinophils (%) (Auto) 1 % (0-3) Basophils (%) (Auto) 1 % (0-3) Neutrophils # (Auto) 7.2 x10^3/uL (1.8-7.7) Lymphocytes # (Auto) 1.3 x10^3/uL (1.0-4.8) Monocytes # (Auto) 1.1 x10^3/uL (0.0-1.1) Eosinophils # (Auto) 0.1 x10^3/uL (0.0-0.7) Basophils # (Auto) 0.0 x10^3/uL (0.0-0.2) Sodium Level 142 mmol/L (136-145) Potassium Level 3.6 mmol/L (3.5-5.1) Chloride Level 104 mmol/L (98-107) Carbon Dioxide Level 28 mmol/L (21-32) Anion Gap 10 (6-14) Blood Urea Nitrogen 11 mg/dL (8-26) Creatinine 0.9 mg/dL (0.7-1.3) Estimated GFR (Cockcroft-Gault) 85.5 BUN/Creatinine Ratio 12 (6-20) Glucose Level 98 mg/dL (70-99) Calcium Level 8.7 mg/dL (8.5-10.1) Total Bilirubin 1.4 mg/dL (0.2-1.0) Aspartate Amino Transf (AST/SGOT) 20 U/L (15-37) Alanine Aminotransferase (ALT/SGPT) 23 U/L (16-63) Alkaline Phosphatase 62 U/L (46-116) Total Protein 7.1 g/dL (6.4-8.2) Albumin 3.3 g/dL (3.4-5.0) Albumin/Globulin Ratio 0.9 (1.0-1.7) Glucose (Fingerstick) 108 mg/dL (70-99) 95 mg/dL (70-99) Prothrombin Time 13.5 SEC (11.7-14.0) Prothromb Time International Ratio 1.1 (0.8-1.1) Activated Partial Thromboplast Time 30 SEC (24-38) Test 08/20/19 17:02 08/20/19 20:50 Glucose (Fingerstick) 91 mg/dL (70-99) 108 mg/dL (70-99) Laboratory Tests Test 08/20/19 10:56 08/20/19 15:00 08/20/19 17:02 08/20/19 20:50 Glucose (Fingerstick) 95 mg/dL (70-99) 91 mg/dL (70-99) 108 mg/dL (70-99) Prothrombin Time 13.5 SEC (11.7-14.0) Prothromb Time International Ratio 1.1 (0.8-1.1) Activated Partial Thromboplast Time 30 SEC (24-38) Medications Current Medications Sodium Chloride 1,000 ml @ 1,000 mls/hr 1X ONCE IV Last administered on 08/18/19at 22:28; Start 08/18/19 at 22:15; Stop 08/18/19 at 23:14; Status DC Ondansetron HCl (Zofran) 4 mg 1X ONCE IV Last administered on 08/18/19at 22:27; Start 08/18/19 at 22:15; Stop 08/18/19 at 22:16; Status DC Morphine Sulfate (Morphine Sulfate) 4 mg 1X ONCE IV Last administered on 08/18/19at 22:27; Start 08/18/19 at 22:15; Stop 08/18/19 at 22:16; Status DC Iohexol (Omnipaque 300 Mg/ml) 75 ml 1X ONCE IV Last administered on 08/18/19at 22:56; Start 08/18/19 at 22:45; Stop 08/18/19 at 22:46; Status DC Info (CONTRAST GIVEN -- Rx MONITORING) 1 each PRN DAILY PRN MC SEE COMMENTS; Start 08/18/19 at 22:45; Stop 08/20/19 at 13:31; Status DC Morphine Sulfate (Morphine Sulfate) 4 mg 1X ONCE IV Last administered on 08/19/19at 00:39; Start 08/19/19 at 00:15; Stop 08/19/19 at 00:16; Status DC Ondansetron HCl (Zofran) 4 mg PRN Q8HRS PRN IV NAUSEA/VOMITING; Start 08/19/19 at 00:30; Stop 08/20/19 at 00:29; Status DC Morphine Sulfate (Morphine Sulfate) 4 mg PRN Q2HR PRN IV PAIN Last administered on 08/19/19at 20:33; Start 08/19/19 at 00:30; Stop 08/20/19 at 00:29; Status DC Sodium Chloride 1,000 ml @ 100 mls/hr Q10H IV Last administered on 08/20/19at 02:04; Start 08/19/19 at 00:30; Stop 08/20/19 at 00:29; Status DC Ciprofloxacin/ Dextrose 200 ml @ 200 mls/hr 1X ONCE IV Last administered on 08/19/19at 00:39; Start 08/19/19 at 00:30; Stop 08/19/19 at 01:29; Status DC Metronidazole 100 ml @ 100 mls/hr 1X ONCE IV Last administered on 08/19/19at 02:31; Start 08/19/19 at 00:30; Stop 08/19/19 at 01:29; Status DC Amlodipine Besylate (Norvasc) 10 mg DAILY PO Last administered on 08/20/19at 09:49; Start 08/19/19 at 12:00 Aspirin (Ecotrin) 81 mg DAILY PO Last administered on 08/20/19 09:48; Start 08/19/19 at 12:00 Atorvastatin Calcium (Lipitor) 40 mg HS PO Last administered on 08/20/19 20:31; Start 08/19/19 at 21:00 Hydralazine HCl (Apresoline) 25 mg BID PO Last administered on 08/20/19 20:31; Start 08/19/19 at 12:00 Lisinopril (Prinivil) 40 mg DAILY PO Last administered on 08/20/19 09:51; Start 08/19/19 at 12:00 Methyldopa (Aldomet) 250 mg BID PO ; Start 08/19/19 at 12:00; Stop 08/19/19 at 16:35; Status DC Metoprolol Tartrate (Lopressor) 50 mg BID PO Last administered on 08/20/19 20:32; Start 08/19/19 at 12:00 Vitamin D (Vitamin D3) 2,000 unit DAILY PO Last administered on 08/20/19 09:49; Start 08/19/19 at 12:00 Fish Oil (Fish Oil) 1,000 mg BID PO Last administered on 08/20/19 20:30; Start 08/19/19 at 12:00 Insulin Human Lispro (HumaLOG) 0-5 UNITS TIDWMEALS SQ ; Start 08/19/19 at 12:00; Stop 08/21/19 at 08:45; Status DC Dextrose (Dextrose 50%-Water Syringe) 12.5 gm PRN Q15MIN PRN IV SEE COMMENTS; Start 08/19/19 at 12:00; Stop 08/21/19 at 08:45; Status DC Metronidazole 100 ml @ 100 mls/hr Q12HR IV Last administered on 08/20/19 20:33; Start 08/19/19 at 13:00 Ciprofloxacin/ Dextrose 100 ml @ 100 mls/hr HS IV Last administered on 08/20/19 20:32; Start 08/19/19 at 21:00 Lactobacillus Rhamnosus (Culturelle) 1 cap BID PO Last administered on 08/20/19 20:31; Start 08/19/19 at 21:00 Polyethylene Glycol (miraLAX PACKET) 17 gm PRN DAILY PRN PO CONSTIPATION Last administered on 08/20/19at 15:03; Start 08/20/19 at 10:15 Acetaminophen (Tylenol) 650 mg PRN Q6HRS PRN PO MILD PAIN / TEMP Last administ ered on 08/20/19at 20:30; Start 08/20/19 at 11:00 Iohexol (Omnipaque 300 Mg/ml) 75 ml 1X ONCE IV Last administered on 08/20/19at 13:30; Start 08/20/19 at 13:30; Stop 08/20/19 at 13:31; Status DC Info (CONTRAST GIVEN -- Rx MONITORING) 1 each PRN DAILY PRN MC SEE COMMENTS; Start 08/20/19 at 13:45; Stop 08/22/19 at 13:44 Docusate Sodium (Colace) 100 mg DAILY PO ; Start 08/21/19 at 09:00 Polyethylene Glycol (miraLAX PACKET) 17 gm PRN DAILY PRN PO CONSTIPATION; Start 08/21/19 at 08:45; Status UNV Active Scripts Active Reported Lipitor (Atorvastatin Calcium) 40 Mg Tablet 40 Mg PO HS Hydralazine Hcl 25 Mg Tablet 1 Tab PO BID Amlodipine Besylate 10 Mg Tablet 10 Mg PO DAILY Vitamin D3 (Cholecalciferol (Vitamin D3)) 2,000 Unit Tablet 2,000 Unit PO DAILY Fish Oil 1,200 Mg Fish Oil (Fish Oil/Dha/Epa) 1 Each Capsule 1 Each PO BID Aspir 81 (Aspirin) 81 Mg Tablet.dr 1 Tab PO DAILY Methyldopa 250 Mg Tablet 1 Tab PO BID Lisinopril 40 Mg Tablet 1 Tab PO DAILY Metoprolol Tartrate 50 Mg Tablet 1 Tab PO BID Vitals/I & O Vital Sign - Last 24 Hours 08/20/19 08/20/19 08/20/19 08/20/19 09:49 09:50 09:50 09:51 Pulse 63 63 63 63 B/P (MAP) 147/83 147/83 147/83 147/83 08/20/19 08/20/19 08/20/19 08/20/19 11:00 15:00 19:00 20:00 Temp 98.3 98.0 98.6 98.3 98.0 98.6 Pulse 59 60 70 Resp 18 18 18 B/P (MAP) 157/75 (102) 142/78 (99) 70/70 (70) Pulse Ox 94 94 93 O2 Delivery Room Air Room Air Room Air Room Air 08/20/19 08/20/19 08/20/19 08/21/19 20:31 20:32 23:00 03:00 Temp 98.3 98.4 98.3 98.4 Pulse 70 70 62 70 Resp 18 18 B/P (MAP) 150/73 150/73 121/61 (81) 126/71 (89) Pulse Ox 94 96 O2 Delivery Room Air Room Air 08/21/19 08/21/19 07:00 07:53 Temp 98.4 98.4 Pulse 75 Resp 18 B/P (MAP) 125/73 (90) Pulse Ox 94 O2 Delivery Room Air Room Air Intake and Output 08/20/19 08/20/19 08/21/19 15:00 23:00 07:00 Intake Total 0 ml Balance 0 ml BETSY FORTE MD Aug 21, 2019 09:06
--- NOTE | 2019-08-21 09:25 | PDOC ---
Subjective: Subjective: Has about 3/10 cramping mid/lower abd pain. Tolerated PO last night - no change in pain then. No stools. Objective: Vital Signs: Vital Signs Date Time Temp Pulse Resp B/P (MAP) Pulse Ox O2 Delivery O2 Flow Rate FiO2 08/21/19 07:53 Room Air 08/21/19 07:00 98.4 75 18 125/73 (90) 94 98.4 Labs: Laboratory Tests Test 08/20/19 10:56 08/20/19 15:00 08/20/19 17:02 08/20/19 20:50 Glucose (Fingerstick) 95 mg/dL 91 mg/dL 108 mg/dL Prothrombin Time 13.5 SEC Prothromb Time International Ratio 1.1 Activated Partial Thromboplast Time 30 SEC Imaging: Chest CT IMPRESSION: No acute lung infiltrate or lung mass. No enlarged thoracic lymphadenopathy. PE: GEN: NAD LUNGS: CTAB HEART: RRR ABD: NABS, S/ND/NT NEURO/PSYCH: A & O �3 A/P: Mid-abdominal cramping Lymphadenopathy, adrenal abnormality -- Plans for biopsy today, then possible DC Continue Miralax, try Dulcolax for constipation. ELI MARTINEZ Aug 21, 2019 09:25
[2019-08-21] MEDS ORDERED: BISACODYL 5 MG TABLET.DR. PO ONE (09:30)
[2019-08-21] MEDS ORDERED: LIDOCAINE WITH 8.4% SOD BICARB 3 ML DISP.SYRIN. ONE (09:30)
[2019-08-21] MEDS ORDERED: MIDAZOLAM HCL/PF 5 MG/5 ML VIAL. ONE (09:49)
[2019-08-21] MEDS ORDERED: fentaNYL PF VIAL 100 MCG/2 ML VIAL ONE (09:49)
--- NOTE | 2019-08-21 09:53 | NUR ---
remains npo and awaiting to go to IR for a biopsy. consents signed. ivf restarted when ivpb hung. at bedside. 2nd bottle for the 24 hr continues.
[2019-08-21] MEDS ORDERED: fentaNYL PF VIAL 100 MCG/2 ML VIAL IV ONE (10:15)
[2019-08-21] MEDS ORDERED: MIDAZOLAM HCL/PF 5 MG/5 ML VIAL. IV ONE (10:15)
[2019-08-21] MEDS ORDERED: LIDOCAINE WITH 8.4% SOD BICARB 3 ML DISP.SYRIN. IJ ONE (10:15)
[2019-08-21] MEDS: OMEGA-3 FATTY ACIDS/FISH OIL 1,000 MG CAPSULE. PO SCH (11:45)
[2019-08-21] MEDS: amLODIPine BESYLATE 10 MG TABLET PO SCH (11:45)
[2019-08-21] MEDS: METOPROLOL TART IMMED RELEASE 50 MG TABLET. PO SCH (11:45)
[2019-08-21] MEDS: LACTOBACILLUS RHAMNOSUS GG 1 CAPSULE. PO SCH (11:46)
[2019-08-21] MEDS: LISINOPRIL 20 MG TABLET PO SCH (11:46)
[2019-08-21] MEDS: ASPIRIN ENTERIC COATED 81 MG TABLET.DR. PO SCH (11:46)
[2019-08-21] MEDS: CHOLECALCIFEROL (VITAMIN D3) 1,000 UNIT TABLET PO SCH (11:46)
[2019-08-21] MEDS: ACETAMINOPHEN 325 MG TABLET. PO PRN (11:46)
[2019-08-21] MEDS: hydrALAZINE 25 MG TABLET PO SCH (11:47)
--- NOTE | 2019-08-21 14:30 | NUR ---
Patient discharged to home. Discharge instructions, medications, and follow up appointments discussed with patient and spouse. Both verbalized understanding. Prescriptions sent to pharmacy. Discharge papers given to patient. IV discontinued. Patient ambulated out with staff at this time. All belongings with patient and spouse.
[2019-08-21] MEDS ORDERED: LACT1CAP19 PO (15:52)
[2019-08-21] MEDS ORDERED: CIPR250T30 PO (15:52)
[2019-08-21] MEDS ORDERED: METR-111 PO (15:52)
[2019-08-21] MEDS ORDERED: DOCU100C28 PO (15:52)
[2019-08-21] MEDS ORDERED: ACET325T9 PO (15:52)
--- NOTE | 2019-08-21 16:19 | RAD ---
CT-guided fine-needle aspiration, mesenteric mass 08/21/2019 Indication: retroperitoneal lymphadenopathy/mass Discussion: The risks and benefits of the procedure, including but not limited to, bleeding and infection were discussed patient. Possibilities of fine-needle aspiration versus core biopsy were discussed prior to the procedure. Informed consent was obtained. The patient was brought to the CT scanner and placed in the supine position. A timeout procedure was performed. Drug Enforcement Agent CT imaging of the abdomen redemonstrates a mesenteric mass. Unfortunately, the small underlying small bowel change change position, and an acceptable window for larger caliber, core needle biopsy was no longer identified. This was discussed with the patient and the pathology department. Fine-needle aspiration was then performed. A 22-gauge needle was advanced under intermittent CT guidance into the mass. Fine needle aspiration was performed. The needle was removed and presented to the nuclear cardiology technologist who was present throughout this procedure. Manual pressure was held. Repeat CT imaging demonstrates no immediate complication. The procedure was performed under conscious sedation including continuous cardiopulmonary monitoring via dedicated sedation nurse. Sedation time: 30 minutes Impression: CT-guided fine-needle aspiration, mesenteric mass. PQRS Compliance Statement: One or more of the following individualized dose reduction techniques were utilized for this examination: 1. Automated exposure control 2. Adjustment of the mA and/or kV according to patient size 3. Use of iterative reconstruction technique
== END 2019-08-21 16:30 | disposition home or self-care (01) | DRG 394 ==
LOC: ER 21:00 → UNDOADMIN 08-19 00:15 → 4 NORTH 08-19 00:15 → 1 WEST ICU 08-19 00:15
PROVIDERS: ADMIT Family Medicine; ATTEND Family Medicine
PROC: 07DB3ZX Extraction of Mesenteric Lymphatic, Percutaneous Approach, Diagnostic (ICD-10-PCS; principal; 2019-08-21)
DX: I88.0 Nonspecific mesenteric lymphadenitis (principal); Z68.41 Body mass index [BMI] 40.0-44.9, adult; D72.829 Elevated white blood cell count, unspecified; E27.8 Other specified disorders of adrenal gland; E66.9 Obesity, unspecified; L40.9 Psoriasis, unspecified; E78.5 Hyperlipidemia, unspecified; I10 Essential (primary) hypertension; I70.0 Atherosclerosis of aorta; Z82.0 Family history of epilepsy and other diseases of the nervous system; Z82.3 Family history of stroke; Z91.030 Bee allergy status
CPT/HCPCS: 36415; 49180; 71260; 74177; 77012; 80053; 81001; 82150; 82962; 83036; 83497; 83615; 83690; 84484; 85025; 85610; 85730; 93005; 99152; 99153; J0744; J1815; J2250; J2270; J2405; J3010; J3490; J7030; Q9967; G0378

== ENCOUNTER → 2019-09-07 | Outpatient (CLI) | payer OTHER ==
[2019-08-21 11:47] VITALS: BP 136/96
[~2019-09-07] MED LIST changes: +ACET325T9 PO; +CIPR250T30 PO; +DOCU100C28 PO; +LACT1CAP19 PO; +METR-111 PO
--- NOTE | 2019-09-09 11:18 | RAD ---
EXAM: PET/CT SKULL BASE TO MID THIGH. HISTORY: Mesenteric mass COMPARISON: 08/21/2019, 08/18/2019. TECHNIQUE: CT was performed from the skull base through the mid thighs for the purposes of attenuation correction. 15.1 mCi F-18 fluorodeoxyglucose (FDG) was administered intravenously. After an uptake period, positron emission tomography was performed from the skull base through the mid thighs. The PET and CT data were fused and interpreted in combination a dedicated workstation. Blood glucose level was 99 mg/dL at the time of FDG administration. FINDINGS: A mesenteric soft tissue mass measures 4.2 x 3.5 cm and is hypermetabolic with maximum SUV 27. There are smaller foci of uptake within a few retroperitoneal and other mesenteric nodes. One small left paraesophageal node is involved. 2 normal-sized right axillary lymph nodes are involved with maximum SUV 4.8. One right preauricular node may also be involved at the superior margin of the field of view versus artifact. Uptake along the larynx is likely muscular with maximum SUV 5.8. A focal lesion is not seen. Involvement is identified. Additional CT findings include a small age age. The heart is mildly enlarged. The main pulmonary artery measures 3.9 cm, consistent with pulmonary arterial hypertension. IMPRESSION: 1. A very hypermetabolic mesenteric jose mass is consistent with lymphoma. Correlate with tissue diagnosis. Retroperitoneal nodes, and small left paraesophageal, right axillary and possibly right preauricular nodes are also involved. 2. Symmetric laryngeal uptake is likely muscular. Correlate with other data. 3. Additional CT findings as above.
== END | disposition home or self-care (01) ==
LOC: PETSC 15:57
PROVIDERS: ATTEND Internal Medicine Hematology & Oncology
DX: K63.89 Other specified diseases of intestine (principal); I51.7 Cardiomegaly
CPT/HCPCS: 78815; A9552

== ENCOUNTER 2019-10-01 06:36 | Outpatient (CLI) | payer OTHER ==
[~2019-10-01] VITALS: Ht 167.6 cm; Wt 108.9 kg
[2019-10-01] VITALS (10 sets, daily range): BP systolic 111–142; BP diastolic 60–90
[2019-10-01] MEDS ORDERED: ASCO500C PO (07:31)
[2019-10-01] MEDS ORDERED: LISI-130 PO (07:31)
[2019-10-01] MEDS ORDERED: HYDR-2868 PO (07:31)
[2019-10-01] MEDS ORDERED: FLUMAZENIL 0.5 MG/5 ML VIAL. IV ONE (07:33)
[2019-10-01] MEDS ORDERED: MIDAZOLAM HCL/PF 2 MG/2 ML VIAL. ONE ×2 (07:33→09:27)
[2019-10-01] MEDS ORDERED: NALOXONE 0.4 MG/ML VIAL. ONE (07:33)
[2019-10-01] MEDS ORDERED: fentaNYL PF VIAL 100 MCG/2 ML VIAL ONE ×2 (07:33→09:27)
[2019-10-01 07:42] LABS: BASO # 0.1 x10^3/uL (0.0-0.2); BASO % 1 % (0-3); EOS # 0.2 x10^3/uL (0.0-0.7); EOS % 2 % (0-3); HEMATOCRIT 44.4 % (39.0-53.0); HEMOGLOBIN 15.1 g/dL (13.0-17.5); LYMPH % 13 % (24-48); MEAN CORPUSCULAR HEMOGLOBIN 30 pg (25-35); MEAN CORPUSCULAR HGB CONC 34 g/dL (31-37); MEAN CORPUSCULAR VOLUME 89 fL (79-100); MONO # 0.7 x10^3/uL (0.0-1.1); MONO % 8 % (0-9); NEUT # 6.1 x10^3/uL (1.8-7.7); NEUT % 76 % (31-73); PLATELET COUNT 212 x10^3/uL (140-400); RED BLOOD COUNT 4.98 x10^6/uL (4.30-5.70); RED CELL DISTRIBUTION WIDTH 13.6 % (11.5-14.5)
[2019-10-01 07:50] LABS: PROTHROMBIN TIME PATIENT 12.6 SEC (11.7-14.0)
[2019-10-01] MEDS ORDERED: LIDOCAINE WITH 8.4% SOD BICARB 3 ML DISP.SYRIN. ONE (08:11)
[2019-10-01] MEDS ORDERED: LIDOCAINE 1%/EPI 1:100,000 20 ML VIAL. ONE (09:12)
[2019-10-01] MEDS ORDERED: fentaNYL PF VIAL 100 MCG/2 ML VIAL IV ONE ×2 (09:30→10:00)
[2019-10-01] MEDS ORDERED: LIDOCAINE WITH 8.4% SOD BICARB 3 ML DISP.SYRIN. IJ ONE (09:30)
[2019-10-01] MEDS ORDERED: MIDAZOLAM HCL/PF 2 MG/2 ML VIAL. IV ONE ×2 (09:30→10:00)
[2019-10-01] MEDS ORDERED: LIDOCAINE 1% Multi-Dose 20 ML VIAL. INJ ONE (10:00)
--- NOTE | 2019-10-01 11:35 | NUR ---
Discharge Note: CANDIS PORTER Discharge instructions and discharge home medications reviewed with Spouse and a copy given. All questions have been answered and understanding verbalized. The following instructions and handouts were given: portacath, bone marrow biopsy, moderate sedation. Portacath instruction packet provided. Dressing to R chest and sacrum dry and intact Discontinued lines and drains: L arm IV site intact. Patient discharged to home with spouse via wheelchair. SHARON HAUSER
--- NOTE | 2019-10-02 13:58 | RAD ---
Procedure: Ultrasound and fluoroscopically guided placement of right internal jugular power port.. 10/02/2019 11:54 AM Clinical Indication: Chemotherapy Sedation: Conscious sedation was administered for 30 minutes. The patient was monitored by a qualified independent observer throughout the time of sedation. Please refer to the medical record for exact doses of medications utilized to achieve moderate sedation. Fluoroscopy time: 0.5 minutes Dose area product: .05 Gycm2 Consent: The procedure was explained in its entirety to the patient or the patients designated business development representative by a member of the treatment team, including a discussion of the risks, benefits and commonly accepted alternatives to the procedure, as well as the expected consequences of no therapy whatsoever. Discussion of the risks included, but was not limited to, those that are most frequent and those that are rare but possibly severe or life-threatening, as well as the possibility of unforeseen complications. Technique and Findings: All elements of maximal sterile barrier technique including the use of a cap, mask, sterile gown, sterile gloves, large sterile sheet, appropriate hand hygiene, and 2% chlorhexidine for cutaneous antisepsis (or acceptable alternative antiseptic per current guidelines) were followed for this procedure. Following informed consent, and a timeout procedure, the patient was prepped and draped in the usual sterile fashion. Ultrasound interrogation of the right neck revealed patency and compressibility of the right internal jugular vein. A 21-gauge micropuncture was then used to gain access to this vein under ultrasound guidance. A hard copy ultrasound image was recorded. The needle was exchanged over a wire for a sheath. A 1 inch incision was made several centimeters inferior to the venotomy site. A catheter was tunneled from this site dermatotomy site in the neck. Catheter was advanced through peel-away sheath such that its tip was in the proximal right atrium with the patient supine. The catheter was trimmed to length and connected to the port reservoir. The port was found to flush and aspirate normally. The wound was closed in layers using 4-0 Vicryl suture. Sterile dressings were applied. Impression: Successful ultrasound and fluoroscopically guided placement of a right internal jugular PowerPort
--- NOTE | 2019-10-02 13:58 | RAD ---
CT-guided bone marrow biopsy. 10/02/2019 11:54 AM Indication: Abdominal Mass, Possible Lymphoma Discussion: The risks and benefits of the procedure, including but not limited to, bleeding and infection were discussed patient. Informed consent was obtained. The patient was brought to the CT scanner and placed in the prone position. A timeout procedure was performed. Bird Raiser CT imaging of the pelvis demonstrated left ilium amenable to bone marrow biopsy. The overlying soft tissues were prepped and draped using maximum sterile barrier technique. 1% lidocaine without epinephrine was administered for local anesthesia. Under intermittent CT guidance, an OncControl needle was advanced into the bone marrow of the left iliac crest. 2 Aspirates and 1 core biopsy samples were obtained. Samples were delivered to pathology was present at the time of procedure. The needle was removed and manual pressure held to achieve hemostasis. No immediate complications were identified. The procedure was performed under conscious sedation including continuous cardiopulmonary monitoring via dedicated sedation nurse. Sedation time: 20 minutes Impression: Successful CT-guided bone marrow biopsy of the left iliac crest . PQRS Compliance Statement: One or more of the following individualized dose reduction techniques were utilized for this examination: 1. Automated exposure control 2. Adjustment of the mA and/or kV according to patient size 3. Use of iterative reconstruction technique
--- NOTE | 2019-10-04 10:07 | PATHOLOGY ---
[facility] Accession Number: [id number] . 01 Material submitted: . PART A: bone - BONE MARROW BIOPSY PART B: bone - BONE MARROW CLOT PART C: bone - BONE MARROW ASPRIATE SLIDES PART D: bone - PERIPHERAL BLOOD SMEAR PART E: bone - BONE MARROW FLOW . 01 Clinical history: . Abdominal mass: Follicular lymphoma . 02 Diagnosis: Peripheral smear: - No diagnostic abnormalities. . Bone marrow, aspirate smears, clot section, and core biopsy: - Normocellular marrow showing trilineage hematopoiesis and no significant dyspoiesis - negative for lymphomatous involvement. - Moderately increased reticuloendothelial iron stores. LBQ 10/04/2019 0955 Local . 02 Comment: The peripheral smear shows no cytopenias or morphologic abnormalities. The bone marrow is normocellular and shows trilineage hematopoiesis, no significant dyspoiesis, and moderately increased iron stores. There is no morphologic evidence of lymphomatous involvement. Flow cytometric analysis shows no immunophenotypic evidence of a lymphoproliferative disorder, acute leukemia, increase in blasts, or plasma cell neoplasm. (JPM/db; 10/03/2019) . Special stains performed: Retic stain on A1, iron stain on B1 and C1 . 02 Electronically signed: . Brandt Crandall MD, Pathologist NPI- [id number] . 01 Gross description: . A. The specimen is received in formalin, labeled "Sabino Thomas, bone marrow BX", are two cylindrical segments of billings-brown bone measuring 0.5 and 1.2 cm in length and with an average 0.2 cm diameter. The specimen is entirely submitted in A1 after decalcification. . B. The specimen is received in formalin, labeled "Sabino Thomas, [id number]", consist of billings-brown clot measuring 2.0 x 2.0 x 0.4 cm. The specimen is entirely submitted in B1. ([facility]; 10/01/2019) [facility] 10/01/2019 1759 Local . 02 Microscopic: . Laboratory Data: The WBC count is 8.0 K/CMM, and the WBC differential reveals 76% neutrophils, 13% lymphs, 8% monos, 2% eos, and 1% baso. The RBC count is 4.98 M/CMM, hemoglobin 15.1 G/DL, hematocrit 44.4%, MCV 89 FL, MCH 30 PG, MCHC 34 G/DL, and the RDW is 13.6%. The platelet count is 212 K/CMM. . Peripheral Smear: The peripheral smear is reviewed. The WBC count is normal. The WBC differential reveals a predominance of segmented neutrophils, with smaller populations of lymphocytes and monocytes and a few eosinophils noted. Neutrophils do not show dysplastic changes. There is a rare circulating myleocyte. There is no significant neutrophilic left shift. There is no leukoerythroblastic reaction. The lymphocyte population consists predominantly of small lymphocytes. There are no obvious circulating lymphoma cells. Red blood cells appear normochromic and normocytic and show no significant anisopoikilocytosis. Platelets appear normal in number and morphology. . Aspirate Smears: Two Mohan's-stained and one iron-stained aspirate smears are examined. The smears contain multiple marrow particles. The M/E ratio is within normal range. Erythroid maturation appears normoblastic. There are no megaloblastic or overt dysplastic changes. Granulopoiesis qualitatively appears normal. There is no significant left shift or dysplastic changes. Megakaryocytes appear adequate in number and are of variable ploidy. There are scattered admixed plasma cells with no significant increase of plasma cells noted. Lymphocytes are not increased. There is no atypical lymphoid infiltrate. There are no cells foreign to the marrow. The iron stain shows mild to moderately increased iron stores. No ringed sideroblasts are identified. . Bone Marrow Biopsy and Clot Section: Sections of the bone marrow biopsy reveal segments of bone marrow which range between 30% and 50% cellular. The clot sections contain multiple marrow particles which range between 20% and 40-50% cellular. There is trilineage hematopoiesis. There is a good admixture of erythroid and granulocytic precursors, which are present in varying stages of maturation. There is no increase of blasts. Megakaryocytes appear adequate in number and are of variable ploidy. There is no increase of plasma cells. There are no abnormal lymphoid aggregates or granulomas. There is no atypical lymphoid infiltrate. There are no cells foreign to the marrow. A reticulin stain obtained on the biopsy shows no significant increase of reticulin fibers. An iron stain obtained on the clot section shows mild to focally moderately increased reticuloendothelial iron stores. No ringed sideroblasts are identified. (JPM/db; 10/03/2019) . Special Studies: Bone marrow submitted for flow cytometric analysis has a viability of 99.4%. Granulocytes comprise 85.3% of total cells and show phenotypic evidence of maturation. Monocytes comprise 4.5% of total cells. CD45 dim, CD34 positive cells comprise 0.5% of total cells. Plasma cells comprise 0.1% of total cells and show unremarkable surface marker expression. Lymphocytes comprise 7.6% of total cells. T-cells comprise 5.5% of total cells and show a CD4/CD8 ratio of 2.3. NK-cells comprise 1.0% of total cells. Mature B-cells comprise 0.9% of total cells and are polyclonal with a kappa:lambda ratio of 1.4. (JPM/db; 10/03/2019) . 02 Pathologist provided ICD-10: R19.00 . 02 CPT . 520997, 613121, 101757, 895983, [id number], [id number], [id number], [id number] Specimen Comment: A courtesy copy of this report has been sent to [phone], [phone] Specimen Comment: [id number], Specimen Comment: Report sent to ,DR FORTE / DR QUILES Performed at: 01 [facility] [address], [place] [id number] MD Emmanuel Land MD Phone: [phone] Performed at: 02 [facility] [address] [place], [place] [id number] MD Brandt Crandall MD Phone: [phone]
== END 2019-10-01 11:35 | disposition home or self-care (01) ==
LOC: INTRAD 06:36
PROVIDERS: ATTEND Internal Medicine Hematology & Oncology
DX: Z45.2 Encounter for adjustment and management of vascular access device (principal); C82.93 Follicular lymphoma, unspecified, intra-abdominal lymph nodes; K63.89 Other specified diseases of intestine; Z79.01 Long term (current) use of anticoagulants
CPT/HCPCS: 36415; 36561; 38222; 76937; 77001; 77012; 85025; 85610; 88184; 88185; 88237; 99152; 99153; C1751; C1769; C1892; C1894; J0696; J2250; J3010; 88305; 88311; 88313

== ENCOUNTER → 2019-10-03 | Outpatient (CLI) | payer OTHER ==
[2019-10-01 11:25] VITALS: BP 120/68
[~2019-10-03] MED LIST changes: +ASCO500C PO
--- NOTE | 2019-10-03 11:57 | CARD ---
MR#: [id number] Date of Study: 10/03/2019 Ordering Physician: BETSY FORTE, Referring Physician: BETSY FORTE, Saúl: Raegan Dominguez APPROVED REPORT EXAM: Two-dimensional and M-mode echocardiogram with Doppler and color Doppler. Other Information Quality : AverageHR: 57bpm INDICATION LV Function:Systolic 2D DIMENSIONS RVDd3.0 (2.9-3.5cm)Left Atrium(2D)3.8 (1.6-4.0cm) IVSd1.2 (0.7-1.1cm)Aortic Root(2D)3.0 (2.0-3.7cm) LVDd4.2 (3.9-5.9cm)LVOT Diameter2.4 (1.8-2.4cm) PWd0.9 (0.7-1.1cm)LVDs2.6 (2.5-4.0cm) FS (%) 37.2 %SV52.2 ml Aortic Valve AoV Peak Edgar.164.1cm/sAoV VTI36.4cm AO Peak GR.10.8mmHgLVOT Peak Edgar.82.5cm/s LVOT VTI 17.90cmAO Mean GR.6mmHg AMANDA (VMAX)1.66qc8GFB (VTI)2.29cm2 Mitral Valve MV E Ultfdmis53.3cm/sMV DECEL [id number] MV A Zuxldvmi512.6cm/sMV AVR83nu E/A Ratio0.9MVA (PHT)3.63cm2 TDI E/Lateral E'14.6E/Medial E'16.9 Pulmonary Valve PV Peak Axqtwzqd47.3cm/sPV Peak Grad.3mmHg Tricuspid Valve TR P. [id number]/sRAP BEDCKYAA1lmCe TR Peak Gr.69tqWsMDQB69xuPv Pulmonary Vein S1 Jlbjauzy15.1cm/sD2 Oyakvjup38.0cm/s PVa [id number] LEFT VENTRICLE The left ventricle is normal size. There is normal left ventricular wall thickness. The left ventricu lar systolic function is normal and the ejection fraction is within normal range. The Ejection Fracti on is 60-65%. There is normal LV segmental wall motion. Transmitral Doppler flow pattern is Grade I-a bnormal relaxation pattern. RIGHT VENTRICLE The right ventricle is normal size. The right ventricular systolic function is normal. ATRIA The left atrium size is normal. The right atrium size is normal. The interatrial septum is intact wit h no evidence for an atrial septal defect or patent foramen ovale as noted on 2-D or Doppler imaging. AORTIC VALVE The aortic valve is thickened but opens well. Doppler and Color Flow revealed no significant aortic r egurgitation. There is no significant aortic valvular stenosis. MITRAL VALVE The mitral valve is thickened but opens well. There is no evidence of mitral valve prolapse. There is no mitral valve stenosis. Doppler and Color-flow revealed trace mitral regurgitation. TRICUSPID VALVE The tricuspid valve is normal in structure and function. Doppler and Color Flow revealed mild tricusp id regurgitation with an estimated PAP of 24 mmHg. PULMONIC VALVE The pulmonic valve is not well visualized. Doppler and Color Flow revealed no pulmonic valvular regur gitation. GREAT VESSELS The aortic root is normal in size. The ascending aorta is normal in size. The IVC is normal in size a nd collapses >50% with inspiration. PERICARDIAL EFFUSION There is no pleural effusion. There is no evidence of significant pericardial effusion. Critical Notification Critical Value: No <Conclusion> The left ventricle is normal size. The left ventricular systolic function is normal and the ejection fraction is within normal range. The Ejection Fraction is 60-65%. There is no significant aortic valvular stenosis. Doppler and Color Flow revealed no significant aortic regurgitation. Doppler and Color-flow revealed trace mitral regurgitation. Doppler and Color Flow revealed mild tricuspid regurgitation with an estimated PAP of 24 mmHg. Signed by : Jason Chacon MD Electronically Approved : 10/03/2019 11:56:40
== END | disposition home or self-care (01) ==
LOC: ECHO 10:29
PROVIDERS: ATTEND Internal Medicine Hematology & Oncology
DX: I07.1 Rheumatic tricuspid insufficiency (principal); K63.89 Other specified diseases of intestine
CPT/HCPCS: 93306

== ENCOUNTER → 2019-12-07 | Outpatient (CLI) | payer OTHER ==
[2019-10-01 11:25] VITALS: BP 120/68
--- NOTE | 2019-12-07 16:12 | RAD ---
Examination: PET W CT SKULL TO MIDTHIGH History: Lymphoma restaging Comparison/Correlation: 09/07/2019 PET/CT exam FINDINGS: Net dose 15.5 mCi F-18 FDG was administered intravenously for purposes of PET/CT exam. Blood glucose level at the time of radiotracer administration was 112 mg/dL. Imaging was performed from the skull base to the proximal thighs. Hepatic reference uptake is SUV max of 2.7 . Uptake of radiotracer involving the visualized head and neck is unremarkable. Uptake of radiotracer in the thorax is unremarkable. Previously evident paraesophageal lymph node is no longer seen. No abnormal uptake along the esophagus in the interval. No abnormal atelectatic identified involving the right axillary lymph nodes compared to the prior exam. No enlarged right axillary lymph nodes. There is a 3.3 cm x 4.4 cm conglomeration of lymph nodes or mass identified inferior to the pancreatic neck which is similar in morphology and size compared to the previous exam. SUV max of 7.5 noted. Decreased intensity of uptake in the interval is noted with a photopenic region within at an interval. There is resolution of the previously identified infrarenal aortocaval lymph nodes.` Resolution of a previously seen lymph node medial to the earlier described conglomeration of lymph nodes or mass is evident. Uptake within the abdomen or eladia bowel is noted in physiologic distribution. No abnormal uptake of radiotracer in the pelvis. IMPRESSION: Improvement of upper abdominal lymphadenopathy. Decrease intensity of uptake of the dominant conglomeration of lymph nodes is evident. Resolution of aortocaval nodes evident. Resolution of a lymph node previously seen in the para esophageal region within the lower thorax. Resolution of uptake involving the right axillary lymph nodes. PQRS Compliance Statement: One or more of the following individualized dose reduction techniques were utilized for this examination: 1. Automated exposure control 2. Adjustment of the mA and/or kV according to patient size 3. Use of iterative reconstruction technique Electronically signed by: Ricardo Gaffney MD (12/07/2019 4:10 PM) [facility]
== END | disposition home or self-care (01) ==
LOC: PETSC 10:27
PROVIDERS: ATTEND Internal Medicine Hematology & Oncology
DX: C82.23 Follicular lymphoma grade III, unspecified, intra-abdominal lymph nodes (principal); R59.0 Localized enlarged lymph nodes
CPT/HCPCS: 78815; A9552

== ENCOUNTER → 2020-02-08 | Outpatient (CLI) | payer OTHER ==
[2019-10-01 11:25] VITALS: BP 120/68
--- NOTE | 2020-02-08 17:52 | RAD ---
RESULT: EXAMINATION: PET W CT SKULL TO MIDTHIGH HISTORY: Lymphoma restaging COMPARISON/CORRELATION: 12/07/2019 PET/CT exam FINDINGS: Net dose 15.73 mCi F-18 FDG was administered intravenously for purposes of PET/CT exam. Blood glucose level at the time of radiotracer administration was 108 mg/dL. Imaging was performed from the skull base to the proximal thighs. Hepatic reference uptake is SUV max of 2.3 . Uptake of radiotracer involving visualized head and neck is unremarkable. Uptake of radiotracer involving the chest is unremarkable. No enlarged thoracic lymph nodes. No suspicious pulmonary nodule or mass. Mesenteric mass inferior to the pancreatic neck is present measuring 3.3 cm x 2.1 cm on axial image 154 of series 3. This represents a decrease in size of approximately 1 cm x 1.5 cm. This has SUV max of 11.6. No new enlarged lymph nodes in the interval. No new foci of uptake involving the abdomen or the pelvis in the interval. Mild prostatomegaly is present. IMPRESSION: Decreased retroperitoneal mesenteric mass size in the interval. Uptake is still seen consistent with active malignancy. No new foci of uptake. PQRS Compliance Statement: One or more of the following individualized dose reduction techniques were utilized for this examination: 1. Automated exposure control 2. Adjustment of the mA and/or kV according to patient size 3. Use of iterative reconstruction technique Electronically signed by: Ricardo Gaffney MD (02/08/2020 5:49 PM) [facility]
== END ==
LOC: PETSC 11:55
PROVIDERS: ATTEND Internal Medicine Hematology & Oncology
DX: C82.23 Follicular lymphoma grade III, unspecified, intra-abdominal lymph nodes (principal)
CPT/HCPCS: 78815; A9552

== ENCOUNTER → 2020-03-06 | Outpatient (CLI) | payer OTHER ==
[2019-10-01 11:25] VITALS: BP 120/68
--- NOTE | 2020-03-06 12:13 | RAD ---
Examination: Lower Extremity Venous Doppler Ultrasound History: Left lower extremity swelling, pain Comparison: None Procedure: Perez scale, color flow 2D and spectal waveform analysis images are obtained with and without compression in the area of the common femoral vein, superficial femoral vein - femoral vein junction, main femoral vein (superficial femoral vein) and popliteal vein. Veins of the proximal calf are also imaged. Findings: There is echogenicity identified in the left common femoral vein distal superficial femoral vein, popliteal vein and posterior tibialis vein likely extensive left lower extremity deep venous thrombosis. The right common femoral vein, superficial femoral vein compatible patent and demonstrate normal compression augmentation of flow. The right calf veins are patent IMPRESSION: 1. Extensive deep venous thrombosis left lower extremity. FOR INTERNAL CODING PURPOSES Critical result: Findings discussed with BETSY FORTE's office at 03/06/2020 12:07 PM. RESULT CODE: (C) Electronically signed by: Chris Leonardo MD (03/06/2020 12:10 PM) [id number]
== END ==
LOC: US 10:49
PROVIDERS: ATTEND Internal Medicine Hematology & Oncology
DX: C82.23 Follicular lymphoma grade III, unspecified, intra-abdominal lymph nodes (principal); M79.89 Other specified soft tissue disorders
CPT/HCPCS: 93970

== ENCOUNTER → 2020-03-21 | Outpatient (CLI) | payer OTHER ==
[2019-10-01 11:25] VITALS: BP 120/68
[~2020-03-21] MED LIST changes: -ASCO500T2 PO; +ASCO500T4 PO
--- NOTE | 2020-03-21 18:20 | RAD ---
EXAM: PET W CT SKULL TO MIDTHIGH EXAM DATE: 03/21/2020 INDICATION: Restaging follicular lymphoma RADIOPHARMACEUTICAL: 12.1 mCi of F-18 Fluorodeoxyglucose (FDG) I.V. via the right antecubital fossa. TECHNIQUE: Patient weight: 190 pounds. Following at least four-hour fasting, the patient's blood glucose was 148 mg/dl. Approximately 1 hour after administration of FDG, overlapping emission scanning was performed from the orbital meatal line through the pelvis. A low-dose CT was performed for attenuation correction purposes and anatomic localization. Fused images of PET and CT were reviewed. Any standardized uptake values (SUV) reported are maximum values within a volume region of interest, expressed in gm/ml. COMPARISON: PET CT of 02/08/2020 FINDINGS: PET: Mesenteric soft tissue mass abutting the SMA inferior to the pancreatic neck shows decreased max SUV to 10.6, down from reported 11.6 previously. There is a photopenic defect in the center of the mass on PET imaging, compatible with interval decrease in central metabolic activity. There is focal increased FDG activity in a partially collapsed loop of small bowel in the right mid abdomen below the proximal portion of the third portion duodenum showing a max SUV of 2.66. Diffuse marrow activity is present with additional symmetric uptake in the bilateral gluteal musculature. Background activity in the mediastinum measures a max SUV of 2.69. Background activity in the liver measures a max SUV of 2.58. CT: Head and neck shows no adenopathy or mass. Chest shows stable right tunneled jugular approach chest port with tip near the cavoatrial junction. No lung nodules or masses and no mediastinal, hilar or axillary adenopathy. Abdomen shows the mesenteric mass inferior to the pancreatic neck is slightly larger, now measuring 4.4 x 3.4 cm (image 148 of series 3) compared with 3.9 x 3.1 cm previously (image 154 of series 3 of the prior exam). Mild fusiform fullness to the left adrenal gland medial limb is unchanged. No associated abnormal metabolic activity. No abdominal adenopathy or masses otherwise noted. Solid abdominal organs and bowel are unremarkable. Pelvis shows prostatomegaly to 4.7 cm transverse diameter. No adenopathy or mass in the pelvis. Bones show no osteolytic or osteoblastic lesions suspicious for malignancy. IMPRESSION: Findings compatible with a positive treatment (partial) response with decreased metabolic activity in the mesenteric mass. Ray score 4 Electronically signed by: Emely Nash MD (03/21/2020 6:17 PM) [id number]
== END | disposition home or self-care (01) ==
LOC: PETSC 07:21
PROVIDERS: ATTEND Internal Medicine Hematology & Oncology
DX: C82.90 Follicular lymphoma, unspecified, unspecified site (principal); K63.89 Other specified diseases of intestine
CPT/HCPCS: 78815; A9552

== ENCOUNTER → 2020-07-18 | Outpatient (CLI) | payer OTHER ==
[2019-10-01 11:25] VITALS: BP 120/68
--- NOTE | 2020-07-18 19:18 | RAD ---
EXAM: PET W CT SKULL TO MIDTHIGH EXAM DATE: 07/18/2020 INDICATION: Reason: LYMPHOMA / Spl. Instructions: / History: RADIOPHARMACEUTICAL: 12.8 mCi of F-18 Fluorodeoxyglucose (FDG) I.V. via the right antecubital fossa. TECHNIQUE: Patient weight: 190 pounds. Following at least four-hour fasting, the patient's blood glucose was 81 mg/dl. Approximately 1 hour after administration of FDG, overlapping emission scanning was performed from the orbital meatal line through the pelvis. A low-dose CT was performed for attenuation correction purposes and anatomic localization. Fused images of PET and CT were reviewed. Any standardized uptake values (SUV) reported are maximum values within a volume region of interest, expressed in gm/ml. COMPARISON: PET CT of 03/21/2020 FINDINGS: PET: There has been interval decrease in abnormal FDG activity in the mesenteric mass abutting the left aspect of the SMA just above the third portion of the duodenum, now with a max SUV of 6.3, compared with 10.6 as reported previously. Previously noted diffuse marrow uptake has also decreased. There is minimal uptake in a healed midline ventral abdominal scar that is new from the prior scan. Otherwise physiologic FDG uptake is present. Mediastinal background FDG uptake shows a max SUV of 2.0. Liver background FDG uptake shows a max SUV of 2.9. CT: No new, unexpected findings in the head and neck. Chest shows stable placement of a right jugular approach chest port and stable borderline ectasia of the ascending thoracic aorta to 4.1 cm. Abdomen and pelvis show a decrease in size of the mesenteric mass, with surrounding desmoplastic reaction, now measuring approximately 2.3 x 1.8 cm (on image 235 of axial series 3). No new masses or adenopathy. No acute findings in the osseous structures. IMPRESSION: Further decrease in size and activity of the mesenteric mass, compatible with a continued partial response to treatment. No evidence of new or worsening disease. Deauville score 4 Electronically signed by: Emely Nash MD (07/18/2020 7:15 PM) [id number]
== END | disposition home or self-care (01) ==
LOC: PETSC 10:34
PROVIDERS: ATTEND Internal Medicine Hematology & Oncology
DX: C82.23 Follicular lymphoma grade III, unspecified, intra-abdominal lymph nodes (principal); Z11.59 Encounter for screening for other viral diseases
CPT/HCPCS: 78815; A9552

== ENCOUNTER → 2020-08-07 | Outpatient (CLI) | payer OTHER ==
[2019-10-01 11:25] VITALS: BP 120/68
--- NOTE | 2020-08-07 11:02 | RAD ---
Left lower extremity venous doppler ultrasound History: Left calf swelling, history of DVT Comparison: March 06, 2020 exam Findings: Multiple grayscale, color, and duplex spectral analysis sonographic images were acquired of the left lower extremity veins to evaluate for the presence of DVT. There is incomplete compressibility of the mid left superficial femoral vein with mild peripheral echogenicity, although normal color flow. No other thrombus is demonstrated, remainder of the left lower extremity veins now patent. Impression: 1. There is residual nonocclusive peripheral echogenicity in the mid left superficial femoral vein, evidence of old thrombus. There is no deep venous thrombus of the remainder of the left lower extremity veins. Electronically signed by: Peter Lee MD (08/07/2020 10:59 AM) [id number]
== END | disposition home or self-care (01) ==
LOC: US 09:49
PROVIDERS: ATTEND Internal Medicine Hematology & Oncology
DX: C82.23 Follicular lymphoma grade III, unspecified, intra-abdominal lymph nodes (principal); Z86.718 Personal history of other venous thrombosis and embolism
CPT/HCPCS: 93971

== ENCOUNTER → 2020-10-24 | Outpatient (CLI) | payer OTHER ==
[2019-10-01 11:25] VITALS: BP 120/68
[~2020-10-24] MED LIST changes: +AMLO-187 PO; -AMLO10TA8 PO
--- NOTE | 2020-10-31 16:23 | RAD ---
Examination: US OBLETB---PET CT skull to mid thigh History: Reason: FOLLICULAR LYMPHOMA C82.23 Z11.59 / Spl. Instructions: / History: Comparison/Correlation: PET/CT exam 07/18/2020 FINDINGS: Net dose 16.77 mCi F-18 FDG was administered intravenously for purposes of PET/CT exam. B lood glucose level at the time of radiotracer administration was 99 mg/dL. Imaging was performed fro m the skull base to the proximal thighs. Hepatic reference uptake is SUV max of 2.1 . Right-sided infusion port with central veins catheter noted. No enlarged thoracic lymph nodes. Minima l coronary calcification. No suspicious pulmonary nodule, mass, or infiltrate. No effusions. Mediasti nal uptake with 1.9 SUV max noted. The mesenteric mass inferior to the pancreas as an SUV maximum of 2. This spiculated mass measures up to 2.7 cm x 2.4 cm on axial image 222 of series 3. It is unchanged compared to previous exam conside ring differences in measurement technique. No enlarged abdominal or pelvic lymph nodes in the interval. The liver, spleen, as, adrenal glands, a nd kidneys are unremarkable. Gallbladder fossa is unremarkable. No abdominal aortic aneurysm. No acut e bony process. Mild prostatomegaly is present. IMPRESSION: No new masses or evidence of lymphadenopathy in the interval. The mesenteric mass has remained stable in size and morphology. Deauville score of 2 noted. PQRS Compliance Statement: One or more of the following individualized dose reduction techniques were utilized for this examinat ion: 1. Automated exposure control 2. Adjustment of the mA and/or kV according to patient size 3. Use of iterative reconstruction technique Electronically signed by: Ricardo Gaffney MD (10/31/2020 4:20 PM) [facility]
== END ==
LOC: PETSC 08:42
PROVIDERS: ATTEND Internal Medicine Hematology & Oncology
DX: C82.23 Follicular lymphoma grade III, unspecified, intra-abdominal lymph nodes (principal); Z11.59 Encounter for screening for other viral diseases
CPT/HCPCS: 78815; A9552

== ENCOUNTER → 2021-02-06 | Outpatient (CLI) | payer OTHER ==
[2019-10-01 11:25] VITALS: BP 120/68
--- NOTE | 2021-02-06 16:10 | RAD ---
EXAM: NM PET/CT SKULL BASE TO MID THIGH EXAM DATE: 02/06/2021 INDICATION: Reason: FOLLICULAR LYMPHOMA / Spl. Instructions: / History: RADIOPHARMACEUTICAL: 14.86 mCi of F-18 Fluorodeoxyglucose (FDG) I.V. via the right antecubital fossa. TECHNIQUE: Patient weight: 215 pounds. Following at least four-hour fasting, the patient's blood gluc ose was 104 mg/dl. Approximately 1 1/2 hours after administration of FDG, overlapping emission scann ing was performed from the orbital meatal line through the pelvis. A low-dose CT was performed for a ttenuation correction purposes and anatomic localization. Fused images of PET and CT were reviewed. Any standardized uptake values (SUV) reported are maximum values within a volume region of interest, expressed in gm/ml. COMPARISON: PET CT of 10/24/2020 FINDINGS: PET: In the head and neck, chest and abdomen, no abnormal FDG uptake is identified. The mesenteric mass abutting the SMA superficial to the pancreas shows no abnormal FDG uptake. Background mediastinal activity measures a max SUV of 2.94. Background hepatic activity measures a max SUV of 3.45. No abnormal uptake in the osseous structures. CT: No significant change in the spiculated mass in the mesentery abutting the SMA measuring approximatel y 2.6 x 2.3 cm on axial image 220 of series 3 this exam (AP by transverse). There are no new masses or enlarged lymph nodes. Stable right chest port, left gynecomastia, bilateral left greater than right adrenal adenomas, scatt ered arterial calcifications, and mild prostatomegaly measuring 4.9 cm diameter. No aggressive osseou s lesions. IMPRESSION: No evidence of metabolically active residual or recurrent disease. Electronically signed by: Emely Nash MD (02/06/2021 4:07 PM) [id number]
== END ==
LOC: PETSC 08:43
PROVIDERS: ATTEND Internal Medicine Hematology & Oncology
DX: C82.23 Follicular lymphoma grade III, unspecified, intra-abdominal lymph nodes (principal); A00.0 Cholera due to Vibrio cholerae 01, biovar cholerae; N40.0 Benign prostatic hyperplasia without lower urinary tract symptoms; N62 Hypertrophy of breast
CPT/HCPCS: 78815; A9552

== ENCOUNTER → 2021-03-26 | Outpatient (CLI) | payer OTHER ==
[2019-10-01 11:25] VITALS: BP 120/68
--- NOTE | 2021-03-26 14:02 | KCIC ---
EXAM: Left lower extremity venous Doppler sonogram. HISTORY: DVT. TECHNIQUE: Perez scale and color Doppler sonographic evaluation of the left lower extremity veins with spectral waveform analysis was performed. FINDINGS: There has been no stable change in a chronic appearing nonocclusive thrombus within the pro ximal and mid superficial femoral vein. There is normal color flow, normal compressibility and there are normal spectral waveforms in the remainder of the lower extremity veins. IMPRESSION: No significant change in chronic appearing nonocclusive thrombus within the proximal and mid left superficial femoral vein. Electronically signed by: Nikkie Scott MD (03/26/2021 1:59 PM) [facility]
== END ==
LOC: KCIC US 12:33
PROVIDERS: ATTEND Internal Medicine Hematology & Oncology
DX: C82.23 Follicular lymphoma grade III, unspecified, intra-abdominal lymph nodes (principal); I82.412 Acute embolism and thrombosis of left femoral vein
CPT/HCPCS: 93971

== ENCOUNTER → 2021-09-25 | Outpatient (CLI) | payer OTHER ==
[2019-10-01 11:25] VITALS: BP 120/68
--- NOTE | 2021-09-25 16:29 | RAD ---
CLINICAL HISTORY: Reason: FOLLICULAR LYMPHOMA GRADE III OF INTRA-ABDOMINAL LYMPH NODES, restaging. COMPARISON: None available. TECHNIQUE: Location of scan: [facility] Radiopharmaceutical Dose: 10.550 mCi F-18 FDG intravenous Blood glucose at time of study: 104 FDG uptake time = 60 minutes. Images were obtained from the top of the head to the mid thighs. A low dose, noncontrast CT study was performed for the purpose of attenuation correction and anatomic localization. FINDINGS: Head and Neck: Physiologic activity is seen within the head and neck. Chest: No suspicious hypermetabolic focus is seen within the thorax. Heart is not enlarged. Coronary calcifications are seen. Right port tip terminates within the distal SVC. No pleural effusions. No pneumothorax. Abdomen and Pelvis: Physiologic activity is seen within the solid organs, including liver as well as the renal collecting systems and bowel. No suspicious hypermetabolic focus is seen within the abdomen or pelvis. Central mesenteric spiculated nodular thickening is grossly stable measuring approximately 2.4 x 2.3 cm, previously 2.6 x 2.3 cm, essentially stable. Moderate colonic stool content. Appendix is normal. Series of ventral abdominal hernias are seen in t he supraumbilical region. Skeletal: No suspicious abnormal focus seen within the osseous structures. Reference SUV Values: Mediastinal SUV Max: 4 Liver SUV Max: 5.3 IMPRESSION: 1. No hypermetabolic focus is seen to suggest residual or recurrent disease. 2. Irregular mass at the mesentery is grossly stable in size accounting for differences in technique , without abnormal FDG uptake. Radiation Dosimetry: The radiopharmaceutical used for this exam delivers approximately 0.7 mSv/mCi (70 mRem/mCi) Source: ICRP Publication 106 Electronically signed by: Cain Mcdaniel MD (09/25/2021 4:27 PM) [id number]
== END ==
LOC: PETSC 08:03
PROVIDERS: ATTEND Internal Medicine Hematology & Oncology
DX: C82.23 Follicular lymphoma grade III, unspecified, intra-abdominal lymph nodes (principal); K43.9 Ventral hernia without obstruction or gangrene; K46.9 Unspecified abdominal hernia without obstruction or gangrene; I25.10 Atherosclerotic heart disease of native coronary artery without angina pectoris
CPT/HCPCS: 78815; A9552